=== PATIENT | male | born 1930 | race Caucasian/White ===

== ENCOUNTER 2021-04-16 14:11 | Inpatient (IN) ==
--- NOTE | 2021-04-16 14:31 | Emergency Department Note ---
Impression & Plan Acute respiratory failure with hypoxia, Pleural effusion, left, Acute CHF, Renal insufficiency ED Provider Note NAME: JT RANDHAWA AGE: 89 SEX: M ARRIVES VIA: Ambulance INFORMANT: Patient, ED PROVIDER(S): Duong Edmonds MD CHIEF COMPLAINT: SOB, weakness. PLAN: Disposition: Admit MEDICAL DECISION MAKING: The patient is a pleasant 89-year-old gentleman with past medical history of dementia, CHF who presents to the emergency department from home with worsening shortness of breath where he was found to have oxygen saturation by EMS to 84% on room air. The patient's son at the bedside does acknowledge that the patient has become more edematous over the past several weeks. He reports that his mother, the patient's , is diligent about making sure he takes his medications including his daily Lasix. He reports he is vaccinated for COVID-19 with 2 dose series numerous months ago. Denies any known COVID-19 exposures. On arrival the patient is mildly dyspneic but no acute distress, afebrile with stable vital signs. He appears hypervolemic with 2+ bilateral lower extremity edema. He has mild JVD. He has scattered rales and rhonchi with underlying wheeze. EKG with suspected normal sinus rhythm with prolonged first-degree AV block without overt acute ischemia. Chest x-ray consistent with congestive failure with pulmonary edema and left sided pleural effusion. WBC 11.5, nonspecific. H/H 12.8/39.9 without prior values for comparison. Platelets within normal limits. Chemistry without metabolic acidosis. Creatinine 1.5 without prior values for comparison. Glucose is 330. Electrolytes and LFTs not significant normality. Troponin 0.039, within normal limits. BNP 5400 without prior values for comparison but consistent with the patient's hypervolemic appearance. Lipase is not elevated. TSH within normal limits. COVID-19 PCR was negative. Patient was ordered for IV Lasix. He also was given DuoNeb treatment for complaint of bronchospasm after which he did have some improvement in his dyspnea and work of breathing. Given the patient's hypoxia in the setting of suspected primary component of CHF/hypervolemia the patient's son at the bedside agree with plan for admission. Case was discussed with Alayna Deutsch, with [facility] hospitalist, who evaluate the patient for admission. Triage Nursing notes reviewed and agree them. Prior medical records reviewed Vital Signs: reviewed and remarkable for hypoxia. Differential diagnosis: Reactive airway disease, pneumonia, pneumothorax, COPD, CHF, infections, cardiac ischemia, pulmonary embolism, musculoskeletal, gastrointestinal, as well as other pathologies. ER treatment provided: See below. Diagnostics interpreted by me: ECG: Suspect normal sinus rhythm with first-degree AV block, 78 bpm, no ectopy, LVH, no overt ST elevation or depression, QTC 475, QRS 108. Cardiac Monitoring: An order for continuous cardiac monitoring was placed and demonstrated normal sinus rhythm with first-degree AV block, 78 bpm, no ectopy. Laboratory studies: See below Imaging studies: See below Consultation(s): Alayna Deutsch, with Dr. Zavala [facility] hospitalist, HPI: The patient is a pleasant 89-year-old gentleman with past medical history of dementia, CHF who presents emerged from from home with worsening shortness of breath where he was found to have oxygen saturation by EMS to 84% on room air. Patient sent the bedside does acknowledge that the patient has become more edematous over the past several weeks. He reports that his mother, the patient's , is diligent about making sure he takes his medications including his daily Lasix. He reports he is vaccinated for COVID-19 with 2 dose series numerous months ago. Denies any known COVID-19 exposures. ROS: See above HPI for pertinent positives & negatives. A total of 10 systems reviewed and were otherwise negative. PAST MEDICAL HISTORY:See Below PAST SURGICAL HISTORY:See Below FAMILY HISTORY:See Below SOCIAL HISTORY:See Below HOME MEDICATIONS:See Below ALLERGIES:See Below VITALS:See Below PHYSICAL EXAMINATION: GENERAL: Awake, alert, moderately dyspneic appearing, in no distress HENT: Normocephalic, atraumatic. Oropharynx unremarkable. EYES: Normal conjunctiva. Sclera non-icteric. NECK: Supple. No nuchal rigidity. FROM. Mild JVD. RESPIRATORY: He has scattered rales and rhonchi with underlying wheeze. CARDIAC: Regular rate, normal rhythm. Extremities warm and well perfused. Pulses equal. ABDOMEN: Soft, non-distended. No tenderness to palpation. No rebound or guarding. No masses. RECTAL: Deferred. MUSCULOSKELETAL: Chest examination reveals no tenderness. The back is symmetrical on inspection without obvious abnormality. There is no CVA tenderness to palpation. No joint edema. LOWER EXTREMITIES: Calves are equal size bilaterally and non-tender. 2+ bilateral lower extremity edema. No discoloration. NEURO: Pleasantly confused. No focal sensory or motor deficits noted. SKIN: No rash or jaundice noted. Duong Edmonds MD Past Med/Surg History Medical History CAD (coronary artery disease) HTN (hypertension) Paroxysmal atrial fibrillation Surgical History History of neck surgery S/P aortic valve replacement with bioprosthetic valve S/P CABG (coronary artery bypass graft) Family History Other Family history unobtainable Social History Smoking Status: Never smoker Hx Alcohol Use: No Hx Substance Use: No Preferred Language: Ethiopian Communication Ability: Impaired Emergency Services Dispatcher Required: No Beliefs That Will Affect Care: None Current Living Situation: Spouse and Family Other Information That Helps Us Care for You: No Feels Safe at Home: Yes Safety Concerns: Feels Safe At This Time Assistive Devices: Denture - Upper and Glasses Allergies Allergies Allergy/AdvReac Type Severity Reaction Status Date / Time morphine Allergy Unknown Unverified 04/16/21 15:28 Home Meds Home Medications Medication Instructions Recorded Confirmed aspirin 325 mg tablet 325 mg PO HS 04/16/21 04/16/21 atorvastatin 40 mg tablet (Lipitor) 40 mg PO HS 04/16/21 04/16/21 diltiazem HCl 180 mg 180 mg PO QAM 04/16/21 04/16/21 capsule,extended release 24 hr (Cardizem CD) donepezil 10 mg tablet (Aricept) 10 mg PO HS 04/16/21 04/16/21 furosemide 40 mg tablet (Lasix) See Rx Instructions .ROUTE .COMPLEX 04/16/21 04/16/21 lisinopril 20 mg tablet (Prinivil) 20 mg PO BID 04/16/21 04/16/21 Results & Data (ED) Vital Signs Vital Signs - 24 hr 04/16/21 14:10 04/16/21 14:12 04/16/21 15:00 Temperature 36.7 C Temperature Source Oral Pulse Rate 72 67 Pulse Rate [Apical] Pulse Rate from SpO2 Sensor 65 Pulse Rhythm Regular Pulse Strength Normal Respiratory Rate 20 24 Respiratory Effort / Characteristics Short of Breath Respiratory Depth Normal Respiratory Pattern Regular Blood Pressure 139/103 H 109/71 Blood Pressure Mean 115 83 Blood Pressure Position Lying Pulse Oximetry 89 L 89 L 97 Oxygen Delivery Method Room Air Nasal Cannula Oxygen Flow Rate 2 Sepsis Recent Fever Within 48 Hours No Sepsis New/Unexplained Change in Mental Status No Sepsis Action Taken by Nursing No Action Required Pulse Oximetry Post Tiitration 97 04/16/21 15:17 04/16/21 15:30 04/16/21 16:00 Temperature Temperature Source Pulse Rate 65 67 Pulse Rate [Apical] 65 Pulse Rate from SpO2 Sensor 65 67 Pulse Rhythm Pulse Strength Respiratory Rate 23 21 23 Respiratory Effort / Characteristics Spontaneous Respiratory Depth Respiratory Pattern Blood Pressure Blood Pressure Mean Blood Pressure Position Pulse Oximetry 97 98 96 Oxygen Delivery Method Nasal Cannula Oxygen Flow Rate 2 Sepsis Recent Fever Within 48 Hours Sepsis New/Unexplained Change in Mental Status Sepsis Action Taken by Nursing Pulse Oximetry Post Tiitration 04/16/21 16:30 04/16/21 17:00 Temperature Temperature Source Pulse Rate 69 67 Pulse Rate [Apical] Pulse Rate from SpO2 Sensor Pulse Rhythm Pulse Strength Respiratory Rate 25 H 35 H Respiratory Effort / Characteristics Respiratory Depth Respiratory Pattern Blood Pressure Blood Pressure Mean Blood Pressure Position Pulse Oximetry Oxygen Delivery Method Oxygen Flow Rate Sepsis Recent Fever Within 48 Hours Sepsis New/Unexplained Change in Mental Status Sepsis Action Taken by Nursing Pulse Oximetry Post Tiitration Laboratory Data Attestation: I reviewed the patient's lab results. Result diagrams: 04/16/21 14:45 04/16/21 14:45 Lab Results 04/16/21 04/16/21 04/16/21 Range/Units 14:20 14:20 14:45 WBC 11.50 H (4.8-10.8) K/uL RBC 4.01 L (4.7-6.1) M/uL Hgb 12.8 L (14.0-18.0) g/dL Hct 39.9 L (42-52) % MCV 99.5 (80-100) fL MCH 31.9 (25-34) pg MCHC 32.1 (32-36) g/dL RDW Std Deviation 52.0 H (36.4-46.3) fL RDW Coeff of Argenis 14.2 (11.5-14.5) % Plt Count 180 (130-400) K/uL MPV 10.7 H (7.4-10.4) fL Immature Gran % (Auto) 0.2 % Neut % (Auto) 85.7 % Lymph % (Auto) 7.7 % [place] % (Auto) 5.0 % Eos % (Auto) 1.2 % Baso % (Auto) 0.2 % Neut # (Auto) 9.86 H (1.4-6.5) K/uL Lymph # (Auto) 0.89 L (1.2-3.4) K/uL [place] # (Auto) 0.57 (0.11-0.59) K/uL Eos # (Auto) 0.14 (0-0.5) K/uL Baso # (Auto) 0.02 (0-0.2) K/uL Immature Gran # (Auto) 0.02 (0.00-0.02) K/uL PT (9.0-12.0) Seconds INR (0.9-1.1) Sodium (136-145) mmol/L Potassium (3.5-5.1) mmol/L Chloride (98-107) mmol/L Carbon Dioxide (21-32) mmol/L Anion Gap (3-11) BUN (7-18) mg/dl Creatinine (0.6-1.4) mg/dl Est Cr Clr Drug Dosing ml/min Est GFR ( Amer) ml/min Est GFR (Non-Af Amer) ml/min BUN/Creatinine Ratio (10-20) Glucose (70-99) mg/dl Calcium (8.5-10.1) mg/dl Phosphorus (2.5-4.9) mg/dl Magnesium (1.8-2.4) mg/dl Total Bilirubin (0.2-1) mg/dl AST (15-37) U/L ALT (12-78) U/L Alkaline Phosphatase (45-117) U/L Troponin I (0-0.045) ng/ml NT-Pro-B Natriuret Pep (0-1800) pg/ml Total Protein (6.4-8.2) gm/dl Albumin (3.4-5.0) gm/dl Globulin (2.5-4.0) gm/dl Albumin/Globulin Ratio (0.9-2) Lipase (73-393) U/L Beta-Hydroxybutyric Acd (0.2-2.81) mg/dl TSH (0.300-4.500) uIu/ml COVID-19 Eval Order Covid19 at [facility] SARS-CoV-2 (PCR) NEGATIVE (Negative) 04/16/21 04/16/21 Range/Units 14:45 14:45 WBC (4.8-10.8) K/uL RBC (4.7-6.1) M/uL Hgb (14.0-18.0) g/dL Hct (42-52) % MCV (80-100) fL MCH (25-34) pg MCHC (32-36) g/dL RDW Std Deviation (36.4-46.3) fL RDW Coeff of Argenis (11.5-14.5) % Plt Count (130-400) K/uL MPV (7.4-10.4) fL Immature Gran % (Auto) % Neut % (Auto) % Lymph % (Auto) % [place] % (Auto) % Eos % (Auto) % Baso % (Auto) % Neut # (Auto) (1.4-6.5) K/uL Lymph # (Auto) (1.2-3.4) K/uL [place] # (Auto) (0.11-0.59) K/uL Eos # (Auto) (0-0.5) K/uL Baso # (Auto) (0-0.2) K/uL Immature Gran # (Auto) (0.00-0.02) K/uL PT 10.8 (9.0-12.0) Seconds INR 1.1 (0.9-1.1) Sodium 137 (136-145) mmol/L Potassium 4.1 (3.5-5.1) mmol/L Chloride 105 (98-107) mmol/L Carbon Dioxide 25 (21-32) mmol/L Anion Gap 8.0 (3-11) BUN 26 H (7-18) mg/dl Creatinine 1.51 H (0.6-1.4) mg/dl Est Cr Clr Drug Dosing 35.6 ml/min Est GFR ( Amer) 46.8 ml/min Est GFR (Non-Af Amer) 40.4 ml/min BUN/Creatinine Ratio 17.2 (10-20) Glucose 330 H* (70-99) mg/dl Calcium 9.6 (8.5-10.1) mg/dl Phosphorus 3.2 (2.5-4.9) mg/dl Magnesium 2.4 (1.8-2.4) mg/dl Total Bilirubin 0.6 (0.2-1) mg/dl AST 21 (15-37) U/L ALT 30 (12-78) U/L Alkaline Phosphatase 116 (45-117) U/L Troponin I 0.039 (0-0.045) ng/ml NT-Pro-B Natriuret Pep 5414 H (0-1800) pg/ml Total Protein 8.0 (6.4-8.2) gm/dl Albumin 3.5 (3.4-5.0) gm/dl Globulin 4.5 H (2.5-4.0) gm/dl Albumin/Globulin Ratio 0.8 L (0.9-2) Lipase 214 (73-393) U/L Beta-Hydroxybutyric Acd 1.05 (0.2-2.81) mg/dl TSH 2.660 (0.300-4.500) uIu/ml COVID-19 Eval Order SARS-CoV-2 (PCR) (Negative) Administered Medications Aspirin (Aspirin 325 Mg Ectab) 325 mg PO HS GUMARO Stop: 05/16/21 20:59 Last Admin: 04/16/21 22:16 Dose: 325 mg Documented by: [id number] Atorvastatin Calcium (Atorvastatin 40 Mg Tab) 40 mg PO HS GUMARO Stop: 05/16/21 20:59 Last Admin: 04/16/21 22:16 Dose: 40 mg Documented by: [id number] Donepezil HCl (Donepezil Hcl 10 Mg Tab) 10 mg PO HS GUMARO Stop: 05/16/21 20:59 Last Admin: 04/16/21 22:16 Dose: 10 mg Documented by: [id number] Heparin Sodium (Porcine) (Heparin Sod 5,000 Unit/0.5 Ml Vial) 5,000 units SQ Q8 GUMARO Stop: 05/16/21 21:59 Last Admin: 04/16/21 22:16 Dose: 5,000 units Documented by: [id number] Insulin Aspart (Insulin Aspart 100 Units/Ml 3 Ml Pen) 0 units SC ACHS [facility] Stop: 05/16/21 20:59 Last Admin: 04/16/21 22:11 Dose: 6 units Documented by: [id number] Cosigned by: [id number] Insulin Aspart (Insulin Aspart 100 Units/Ml 3 Ml Pen) 0 units SC 0000,0400 GUMARO Stop: 04/17/21 04:01 Last Admin: 04/17/21 00:41 Dose: 2 units Documented by: [id number] Cosigned by: [id number] Discontinued Medications Albuterol (Albut/Ipratrop 3mg/0.5mg Neb 3 Ml Vial) 3 ml NEB NOW STA Stop: 04/16/21 14:38 Last Admin: 04/16/21 15:17 Dose: 3 ml Documented by: [id number] Furosemide (Furosemide 40 Mg/4 Ml Vial) 40 mg IV ONE ONE Stop: 04/16/21 15:36 Last Admin: 04/16/21 16:20 Dose: 40 mg Documented by: [id number] Imaging Data Radiologist's Impression: Chest X-Ray 04/16/21 14:23 XR chest 1V portable CLINICAL HISTORY: Chest Pain. COMPARISON STUDY: No previous studies for comparison. TECHNIQUE: 1 view of the chest FINDINGS: Single frontal view of the chest demonstrates the heart size to be enlarged status post previous cardiothoracic surgery. There is evidence for a moderate- sized left pleural effusion with left lower lobe atelectasis/collapse. No definite right-sided pleural effusion is seen. There is diffuse interstitial edema most characteristic of congestive heart failure. There is no acute osseous pathology. IMPRESSION: Cardiomegaly status post previous cardiothoracic surgery with evidence for diffuse interstitial edema characteristic of congestive heart failure. Moderate-sized left pleural effusion with left basilar atelectasis is also present. ACT 112: Negative or not required by law. Electronically signed by: Michael Upton M.D. 04/16/2021 2:47 PM Discharge Plan Visit Data Chief Complaint: Shortness of Breath/Dyspnea Stated Complaint: SOB, increased weakness ED Provider: Duong Edmonds Discharge Problem: Acute respiratory failure with hypoxia, Pleural effusion, left, Acute CHF, Renal insufficiency Patient Disposition: Admitted As Inpatient Discharge Instructions Interventions: ED Discharge Assessment Last Done: 04/16/21 18:09
[2021-04-16] MEDS ORDERED: ALBUT/IPRATROP 3MG/0.5MG NEB 3 ML VIAL NEB STA (14:37)
--- NOTE | 2021-04-16 14:48 | XRay Report ---
XR chest 1V portable CLINICAL HISTORY: Chest Pain. COMPARISON STUDY: No previous studies for comparison. TECHNIQUE: 1 view of the chest FINDINGS: Single frontal view of the chest demonstrates the heart size to be enlarged status post previous card iothoracic surgery. There is evidence for a moderate-sized left pleural effusion with left lower lobe atelectasis/collapse. No definite right-sided pleural effusion is seen. There is diffuse interstitia l edema most characteristic of congestive heart failure. There is no acute osseous pathology. IMPRESSION: Cardiomegaly status post previous cardiothoracic surgery with evidence for diffuse inters titial edema characteristic of congestive heart failure. Moderate-sized left pleural effusion with le ft basilar atelectasis is also present. ACT 112: Negative or not required by law. Electronically signed by: Michael Upton M.D. 04/16/2021 2:47 PM
[2021-04-16 14:56] LABS: Basophils # (auto) 0.02 K/uL (0-0.2); Basophils % (auto) 0.2 %; Eosinophils # (auto) 0.14 K/uL (0-0.5); Eosinophils % (auto) 1.2 %; Hematocrit (blood only) 39.9 % (42-52); Hemoglobin 12.8 g/dL (14.0-18.0); Immature Granulocytes # (auto) 0.02 K/uL (0.00-0.02); Immature Granulocytes % (auto) 0.2 %; Lymphocytes # (auto) 0.89 K/uL (1.2-3.4); Lymphocytes % (auto) 7.7 %; Mean Corpuscular Hemoglobin 31.9 pg (25-34); Mean Corpuscular Hgb Conc 32.1 g/dL (32-36); Mean Corpuscular Volume 99.5 fL (80-100); Mean Platelet Volume 10.7 fL (7.4-10.4); Monocytes # (auto) 0.57 K/uL (0.11-0.59); Neutrophils # (auto) 9.86 K/uL (1.4-6.5); Neutrophils % (auto) 85.7 %; Platelet Count 180 K/uL (130-400); RDW Coefficient of Variation 14.2 % (11.5-14.5); Red Blood Count 4.01 M/uL (4.7-6.1)
[2021-04-16 15:15] LABS: INR 1.1 (0.9-1.1); Prothrombin Time 10.8 Seconds (9.0-12.0)
[2021-04-16 15:23] LABS: Albumin Globulin Ratio 0.8 (0.9-2); Albumin Level 3.5 gm/dl (3.4-5.0); BUN Creatinine Ratio 17.2 (10-20); Bilirubin,Total 0.6 mg/dl (0.2-1); Calcium 9.6 mg/dl (8.5-10.1); Creatinine Clr Calc Pharmacy 35.6 ml/min; Est GFR (African American) 46.8 ml/min; Est GFR (Non-African American) 40.4 ml/min; Globulin 4.5 gm/dl (2.5-4.0); Magnesium 2.4 mg/dl (1.8-2.4); Phosphorus 3.2 mg/dl (2.5-4.9); Potassium 4.1 mmol/L (3.5-5.1)
[2021-04-16] MEDS ORDERED: FUROSEMIDE 40 MG/4 ML VIAL IV ONE (15:35)
[2021-04-16 15:42] LABS: Beta-Hydroxybutyrate 1.05 mg/dl (0.2-2.81); Thyroid Stimulating Hormone 2.66 uIu/ml (0.300-4.500); Troponin I 0.039 ng/ml (0-0.045)
--- NOTE | 2021-04-16 16:41 | Electrocardiogram Report ---
Test Reason : Blood Pressure : / mmHG Vent. Rate : 070 BPM Atrial Rate : 069 BPM P-R Int : 000 ms QRS Dur : 108 ms QT Int : 440 ms P-R-T Axes : 000 -22 057 degrees QTc Int : 475 ms Poor data quality, interpretation may be adversely affected Probably sinus, although a junctiontional rhythm cannot be excluded Minimal voltage criteria for LVH, may be normal variant Abnormal ECG No previous ECGs available Confirmed by Dino Rojas ([id number]) on 04/16/2021 4:41:11 PM Referred By: REFERRED SELF Confirmed By:Uri Rojas
--- NOTE | 2021-04-16 17:49 | History & Physical Report ---
Date of Service April 16, 2021 Assessment & Plan (1) Acute CHF: (2) Acute respiratory failure with hypoxia: Plan: -Admit to telemetry -Patient presenting from home for evaluation of lethargy and hypoxia. -In the ED, CXR shows signs consistent with CHF and left pleural effusion. Patient requiring 2 L of oxygen via nasal cannula. -Noted the patient does take Lasix at home however outpatient record availability very limited, no recent echo available for review -S/p Lasix 40 mg IV in the ED, continue Lasix 40 mg IV daily -Grey placed for strict I/Os, low Na+ diet, daily weights -Echo -Consider cardiology consult pending echo results (3) Pleural effusion, left: Plan: -CXR shows a moderate pleural effusion -Likely due to acute CHF -Monitor response after Lasix may need pulmonary evaluation for possible thoracentesis (4) Hyperglycemia: Plan: -Glucose 330 -No reported history of diabetes -Check Hgb A1c -Glycemic pharmacy consult (5) Abnormal renal function: Plan: -Creatinine 1.5, unknown baseline -Suspect likely underlying CKD -Monitor renal functions (6) Paroxysmal atrial fibrillation: Plan: -Remote history of found in a limited record review -Continue diltiazem -Likely not anticoagulated secondary to advanced age and fall risk (7) HTN (hypertension): Plan: -BP currently controlled/borderline low -Continuing diltiazem, hold lisinopril due to mildly abnormal renal function and receiving IV diuresis (8) CAD (coronary artery disease): Plan: -Appears stable -Remote history of CABG -Continue ASA and statin (9) DVT prophylaxis: Plan: -SQ heparin (10) Discharge planning issues: Plan: -Patient with advanced dementia. Lives at home with his 91-year-old . Son is at the bedside who reports that his mom is very resistant to having care come into the home. Discussed CODE STATUS with patient's son who is unsure of the details of the patient's and 's wishes. Reports that he will have a discussion with his siblings and mother this evening. Consider palliative care consult for goals of care conversation. History of Present Illness Chief Complaint: Lethargy Primary Care Provider: Peter Tejeda PA-C 89-year-old male with PMH dementia, CAD s/p CABG, aortic stenosis s/p bioprosthetic aortic valve replacement, paroxysmal atrial fibrillation, HTN. Past medical history very limited due to limited record availability and pa maximilian's dementia. Patient son is at the bedside who provides history. Reports that this afternoon, his father was very lethargic. They have a neighbor who is a physician's itinerant teacher assistant who came to evaluate him. Patient was found to be hypoxic and have abnormal lung sounds. EMS was called and patient was brought to the ED for further evaluation. Patient son notes increasing lower extremity edema over the past few weeks. Attributes this to the patient not elevating his legs. No other symptoms reported. Note that patient lives at home with his 91-year-old . Son reports that his mother is very resistant to having help come into the house. In the ED, patient is requiring 2 L of oxygen via nasal cannula. CXR is consistent with CHF and a left pleural effusion. Labs show WBC 11.5, Hgb 12.8, creatinine 1.5, glucose 330, proBNP 5400. Patient was given nebulizer treatment and Lasix 40 mg IV. Allergies Allergy/AdvReac Type Severity Reaction Status Date / Time morphine Allergy Unknown Unverified 04/16/21 15:28 Home Medications Medication Instructions Recorded Confirmed Type aspirin 325 mg tablet 325 mg PO HS 04/16/21 04/16/21 History atorvastatin 40 mg tablet (Lipitor) 40 mg PO HS 04/16/21 04/16/21 History diltiazem HCl 180 mg 180 mg PO QAM 04/16/21 04/16/21 History capsule,extended release 24 hr (Cardizem CD) donepezil 10 mg tablet (Aricept) 10 mg PO HS 04/16/21 04/16/21 History furosemide 40 mg tablet (Lasix) See Rx Instructions .ROUTE .COMPLEX 04/16/21 04/16/21 History lisinopril 20 mg tablet (Prinivil) 20 mg PO BID 04/16/21 04/16/21 History Past Med/Surg History Medical History CAD (coronary artery disease) HTN (hypertension) Paroxysmal atrial fibrillation Surgical History History of neck surgery S/P aortic valve replacement with bioprosthetic valve S/P CABG (coronary artery bypass graft) Family History Other Family history unobtainable Social History (Updated 04/16/21 @ 17:34 by SURENDRA Sinha) Smoking Status: Never smoker Hx Alcohol Use: No Feels Safe at Home: Yes Review of Systems Review of Systems: Unobtainable due to cognitive status Physical Exam Constitutional: WD/WN, vitals as above Eyes: PERRL, conjunctivae normal, anicteric sclerae ENMT: external ear and nose normal, oropharynx normal Respiratory: normal respiratory effort; no respiratory distress Auscultation: + crackles (BL bases) Cardiovascular: Rate/Rhythm: regular rate and regular rhythm Vessels: normal peripheral pulses Extremities: + edema (+3 pitting edema BLE) Gastrointestinal (Abdomen): normal bowel sounds, soft, nontender, no hepatosplenomegaly Inspection/Auscultation: + abdomen distended Musculoskeletal: no cyanosis or clubbing, extremities motor strength 5/5 Skin: no rashes, warm and dry Neurologic: PERRL, EOMI, accommodation nl, no face palsy, no dysarthria Psychiatric: Orientation: alert and oriented to person; + not oriented to place and + not oriented to time Cognition: + recent memory not intact Insight: + poor insight Results & Data Results & Data ([facility]) Vital Signs (Past 12 Hours) Vital Signs Temp Pulse Pulse Resp BP Pulse Ox 04/16/21 15:30 65 21 98 04/16/21 15:17 65 23 97 04/16/21 15:00 67 24 109/71 97 04/16/21 14:12 89 L 04/16/21 14:10 36.7 C 72 20 139/103 H 89 L Laboratory Results Short CBC 04/16/21 Range/Units 14:45 WBC 11.50 H (4.8-10.8) K/uL Hgb 12.8 L (14.0-18.0) g/dL Hct 39.9 L (42-52) % Plt Count 180 (130-400) K/uL BMP 04/16/21 14:45 Sodium 137 Potassium 4.1 Chloride 105 Carbon Dioxide 25 BUN 26 H Creatinine 1.51 H Glucose 330 H* Calcium 9.6 Cardiac Enzymes 04/16/21 Range/Units 14:45 Troponin I 0.039 (0-0.045) ng/ml Liver Function 04/16/21 Range/Units 14:45 Total Bilirubin 0.6 (0.2-1) mg/dl AST 21 (15-37) U/L ALT 30 (12-78) U/L Alkaline Phosphatase 116 (45-117) U/L Albumin 3.5 (3.4-5.0) gm/dl Diagnostic Findings Chest X-Ray 04/16/21 14:23 XR chest 1V portable CLINICAL HISTORY: Chest Pain. COMPARISON STUDY: No previous studies for comparison. TECHNIQUE: 1 view of the chest FINDINGS: Single frontal view of the chest demonstrates the heart size to be enlarged status post previous cardiothoracic surgery. There is evidence for a moderate- sized left pleural effusion with left lower lobe atelectasis/collapse. No definite right-sided pleural effusion is seen. There is diffuse interstitial edema most characteristic of congestive heart failure. There is no acute osseous pathology. IMPRESSION: Cardiomegaly status post previous cardiothoracic surgery with evidence for diffuse interstitial edema characteristic of congestive heart failure. Moderate-sized left pleural effusion with left basilar atelectasis is also present. ACT 112: Negative or not required by law. Electronically signed by: Michael Upton M.D. 04/16/2021 2:47 PM Code Status & VTE Plan Code Status Patient is a full code as per my discussion with his son who is at the bedside. VTE Prophylaxis Plan VTE Prophylaxis will be ordered: Yes Supervising Physician Co-Signing Physician Notes Attending addendum The patient was seen and examined in the emergency room in presence of the son He is severely demented and cannot do any meaningful conversation Presented with shortness of breath, not feeling well and leg swelling which has been going on for the last 3 or 4 days On examination Minimal shortness of breath at rest Hemodynamically stable Chest-decreased breath sound bilaterally with bibasilar crackles Heart-S1-S2, regular Abdomen-distended, soft, bowel sound present [id number]+ edema bilaterally PULMONOLOGIST-alert and awake. Has profound dementia His admission labs, EKG and imaging studies reviewed Has CHF with pleural effusion Lasix has been given and will get echocardiogram May need cardiology evaluation Agree with assessment and plan as outlined above by Aleyda Zavala
[2021-04-16] MEDS ORDERED: PHARMACY GLYCEMIC MGMT CONSULT PRN (19:19)
[2021-04-16] MEDS ORDERED: CARBOHYDRATES FOR HYPOGLYCEMIA PO PRN (19:19)
[2021-04-16] MEDS ORDERED: GLUCAGON FOR INJ 1 MG VIAL SQ PRN (19:19)
[2021-04-16] MEDS ORDERED: NITROGLYCERIN SL 0.4 MG/TAB TAB SL PRN (19:19)
[2021-04-16] MEDS ORDERED: DEXTROSE 50% 50 ML SYRINGE IV PRN (19:19)
[2021-04-16] MEDS ORDERED: GLUCOSE 10 TABS/TUBE PO PRN (19:19)
[2021-04-16] MEDS ORDERED: GLUCOSE 40% GEL 15 GM TUBE PO PRN (19:19)
[2021-04-16] MEDS ORDERED: ACETAMINOPHEN 325 MG TAB PO PRN (19:19)
[2021-04-16 21:30] LABS: Partial Thromboplastin Time 25.6 Seconds (21.0-31.0)
[2021-04-16] MEDS: INSULIN ASPART 100 UNITS/ML 3 ML PEN SC SCH (22:11)
[2021-04-16] MEDS: DONEPEZIL HCL 10 MG TAB PO SCH (22:16)
[2021-04-16] MEDS: ATORVASTATIN 40 MG TAB PO SCH (22:16)
[2021-04-16] MEDS: HEPARIN SOD 5,000 UNIT/0.5 ML VIAL SQ SCH (22:16)
[2021-04-16] MEDS: ASPIRIN 325 MG ECTAB PO SCH (22:16)
[2021-04-17] MEDS: INSULIN ASPART 100 UNITS/ML 3 ML PEN SC SCH ×6 (00:41→21:17)
[2021-04-17] MEDS: HEPARIN SOD 5,000 UNIT/0.5 ML VIAL SQ SCH ×3 (05:04→21:17)
[2021-04-17 07:25] LABS: Hematocrit (blood only) 32.5 % (42-52); Hemoglobin 10.6 g/dL (14.0-18.0); Mean Corpuscular Hemoglobin 31.5 pg (25-34); Mean Corpuscular Hgb Conc 32.6 g/dL (32-36); Mean Corpuscular Volume 96.7 fL (80-100); Mean Platelet Volume 10.4 fL (7.4-10.4); Platelet Count 157 K/uL (130-400); RDW Coefficient of Variation 14.3 % (11.5-14.5); RDW Standard Deviation 50.9 fL (36.4-46.3); Red Blood Count 3.36 M/uL (4.7-6.1); White Blood Count 12.58 K/uL (4.8-10.8)
[2021-04-17 07:55] LABS: BUN Creatinine Ratio 20.6 (10-20); Calcium 9.1 mg/dl (8.5-10.1); Creatinine Clr Calc Pharmacy 42.4 ml/min; Est GFR (African American) 57.7 ml/min; Est GFR (Non-African American) 49.8 ml/min; Magnesium 2.2 mg/dl (1.8-2.4); Potassium 3.9 mmol/L (3.5-5.1)
[2021-04-17] MEDS: dilTIAZem HCL 180 MG CAPCR PO SCH (08:15)
[2021-04-17] MEDS: FUROSEMIDE 40 MG/4 ML VIAL IV SCH (08:16)
[2021-04-17 09:23] LABS: Estimated Average Glucose 209 mg/dl; Hemoglobin A1C 8.9 % (4.5-5.6)
--- NOTE | 2021-04-17 11:32 | Pharmacy Report ---
Pharmacy Glycemic Short Note 2 - Date of Service April 17, 2021 - Glycemic Short BSG Results (Last 24 hours): 04/16/21 04/16/21 04/17/21 14:45 20:14 00:39 Glucose 330 H* POC Glucose 281 H 170 H 04/17/21 04/17/21 04/17/21 05:00 06:58 07:44 Glucose 159 H POC Glucose 176 H 155 H OUTPATIENT ANTIDIABETIC REGIMEN: * n/a * A1c 8.9% - 04/17/21 ASSESSMENT: * 89 year old male with PMHx of dementia, CAD, s/p value replacement, afib, htn, Presenting with increase edema/CHF. No reported history of diabetes, but with elevated BSGs on arrival * BSGs trending downward since starting sliding scale insulin. Plan to continue same for now PLAN FOR INPATIENT GLYCEMIC CONTROL: * Hold outpatient oral diabetes medications * Basal insulin * Lantus - holding due to advanced age * Bolus insulin * NovoLog per scale ACHS or Q6hrs while NPO * Goal Range: Low 110 mg/dL - High 140 mg/dL * Correction Factor: 25 mg/dL/unit * Nutritional / Prandial insulin per carb ratio of 1 unit per 9 grams CHO consumed PLAN FOR DISCHARGE: * tbd
--- NOTE | 2021-04-17 17:48 | Hospitalist Progress Note ---
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 -In the ED, CXR shows signs consistent with CHF and left pleural effusion. Patient requiring 2 L of oxygen via nasal cannula. -Noted the patient does take Lasix at home however outpatient record availability very limited, no recent echo available for review -S/p Lasix 40 mg IV in the ED, continue Lasix 40 mg IV daily -Grey placed for strict I/Os, low Na+ diet, daily weights -ECHO: Severe concentric LVH, septal inferoseptal wall motion abnormality, EF 45 to 50%, grade 3 diastolic dysfunction, increased left atrial pressure and left atrium is severely dilated, bioprosthetic aortic valve, aortic valve prosthesis gradients are appropriate, no prosthetic regurgitation, mild MR and mild TR, pulmonary artery systolic pressure is mildly elevated at 43. -EKG showed possible sinus/junctional bradycardia -Troponins are mildly elevated likely secondary to CHF -Patient has been feeling much better -We will continue intravenous Lasix for now -Repeat EKG tomorrow (2) Acute respiratory failure with hypoxia: Plan: Likely secondary to CHF (3) Pleural effusion, left: Plan: -CXR shows a moderate pleural effusion -Likely due to acute CHF -Monitor response after Lasix may need pulmonary evaluation for possible thoracentesis (4) Hyperglycemia: Plan: -Glucose 330 -No reported history of diabetes -Check Hgb B6v-[id number] at 8.9 -Has been on sliding scale insulin coverage -Glycemic pharmacy consult (5) Abnormal renal function: Plan: -Creatinine 1.5, unknown baseline -Suspect likely underlying CKD -Monitor renal functions-creatinine is 1.27 as of 04/17/2021 (6) Paroxysmal atrial fibrillation: Plan: -Remote history of found in a limited record review -Continue diltiazem -Likely not anticoagulated secondary to advanced age and fall risk (7) HTN (hypertension): Plan: -BP currently controlled/borderline low -Continuing diltiazem, hold lisinopril due to mildly abnormal renal function and receiving IV diuresis -Blood pressure is controlled (8) CAD (coronary artery disease): Plan: -Appears stable -Remote history of CABG -Continue ASA and statin (9) DVT prophylaxis: Plan: -SQ heparin (10) Discharge planning issues: Plan: -Patient with advanced dementia. Lives at home with his 91-year-old . Son is at the bedside who reports that his mom is very resistant to having care come into the home. CODE STATUS changed to conditional after discussion with the son Admission and Anticipated Discharge Date Admission Date: April 16, 2021 Subjective 04/17/2021 The patient was seen and examined in telemetry unit in presence of the son He has been much better He has severe dementia but answered questions appropriately today Review of Systems Review of Systems: Unobtainable due to cognitive status Physical Exam Physical Exam: Lying in bed with minimal distress Constitutional: well developed, well nourished and + ill appearing Eyes: PERRL, conjunctivae normal, anicteric sclerae ENMT: external ear and nose normal, oropharynx normal Neck: trachea midline, no thyromegaly Respiratory: + respiratory distress (Minimal distress at rest) and + cough Auscultation: + diminished lung sounds and + crackles (Bibasilar crackles) Cardiovascular: Rate/Rhythm: regular rate and regular rhythm Heart Sounds: normal S1 and normal S2; no murmur Extremities: + edema (1+ edema bilaterally) Gastrointestinal (Abdomen): Inspection/Auscultation: normal bowel sounds; abdomen not distended Percussion/Palpation: abdomen soft; abdomen nontender Musculoskeletal: No acute arthritis in any joint Neurologic: Alert and awake. Pleasantly confused. Moving all limbs but generally very weak and lethargic Psychiatric: Insight: + poor insight Lymphatic: no cervical or axillary lymphadenopathy Results & Data Results & Data ([facility]) Vital Signs (Past 12 Hours) Vital Signs Temp Pulse Resp BP Pulse Ox 04/17/21 16:13 36.6 C 62 18 124/75 99 04/17/21 12:06 36.5 C 70 18 99/62 L 93 04/17/21 07:54 36.6 C 84 18 130/82 96 Laboratory Results Short CBC 04/17/21 Range/Units 06:58 WBC 12.58 H (4.8-10.8) K/uL Hgb 10.6 L (14.0-18.0) g/dL Hct 32.5 L (42-52) % Plt Count 157 (130-400) K/uL BMP 04/17/21 06:58 Sodium 141 Potassium 3.9 Chloride 108 H Carbon Dioxide 28 BUN 26 H Creatinine 1.27 Glucose 159 H Calcium 9.1 Cardiac Enzymes 04/16/21 04/17/21 Range/Units 20:30 02:20 Troponin I 0.063 H* 0.073 H* (0-0.045) ng/ml Medications Administered Current Inpatient Medications Acetaminophen (Acetaminophen 325 Mg Tab) 650 mg PO Q4H PRN PRN Reason: Pain or Fever Stop: 05/16/21 19:18 Aspirin (Aspirin 325 Mg Ectab) 325 mg PO HS GUMARO Stop: 05/16/21 20:59 Last Admin: 04/16/21 22:16 Dose: 325 mg Documented by: Atorvastatin Calcium (Atorvastatin 40 Mg Tab) 40 mg PO HS GUMARO Stop: 05/16/21 20:59 Last Admin: 04/16/21 22:16 Dose: 40 mg Documented by: Dextrose (Dextrose 50% 50 Ml Syringe) 25 - 50 ml IV UD PRN; Protocol PRN Reason: Hypoglycemia Protocol Stop: 05/16/21 19:18 Diltiazem HCl (Diltiazem Hcl 180 Mg Capcr) 180 mg PO QAM GUMARO Stop: 05/17/21 08:59 Last Admin: 04/17/21 08:15 Dose: 180 mg Documented by: Donepezil HCl (Donepezil Hcl 10 Mg Tab) 10 mg PO HS GUMARO Stop: 05/16/21 20:59 Last Admin: 04/16/21 22:16 Dose: 10 mg Documented by: Furosemide (Furosemide 40 Mg/4 Ml Vial) 40 mg IV DAILY GUMARO Stop: 05/17/21 08:59 Last Admin: 04/17/21 08:16 Dose: 40 mg Documented by: Glucagon (Glucagon For Inj 1 Mg Vial) 1 mg SQ UD PRN; Protocol PRN Reason: Hypoglycemia Protocol Stop: 05/16/21 19:18 Glucose (Glucose 10 Tabs/Tube) 4 - 8 tabs PO UD PRN; Protocol PRN Reason: Hypoglycemia Protocol Stop: 05/16/21 19:18 Glucose (Glucose 40% Gel 15 Gm Tube) 15 - 30 gm PO UD PRN; Protocol PRN Reason: Hypoglycemia Protocol Stop: 05/16/21 19:18 Heparin Sodium (Porcine) (Heparin Sod 5,000 Unit/0.5 Ml Vial) 5,000 units SQ Q8 GUMARO Stop: 05/16/21 21:59 Last Admin: 04/17/21 14:27 Dose: 5,000 units Documented by: Insulin Aspart (Insulin Aspart 100 Units/Ml 3 Ml Pen) 0 units SC ACHS GUMARO Stop: 05/16/21 20:59 Last Admin: 04/17/21 17:05 Dose: 3 units Documented by: Miscellaneous (Carbohydrates For Hypoglycemia ) 15 - 30 gm PO UD PRN PRN Reason: Hypoglycemia Protocol Stop: 05/16/21 19:18 Miscellaneous Information (Pharmacy Glycemic Mgmt Consult) 1 ea N/A UD PRN; Protocol PRN Reason: Consult Stop: 05/16/21 19:18 Nitroglycerin (Nitroglycerin Sl 0.4 Mg/Tab Tab) 0.4 mg SL UD PRN PRN Reason: Chest Pain Stop: 05/16/21 19:18 (1) Acute CHF Heart failure type: unspecified Qualified Code(s): I50.9 - Heart failure, unspecified
[2021-04-17] MEDS: ASPIRIN 325 MG ECTAB PO SCH (21:17)
[2021-04-17] MEDS: ATORVASTATIN 40 MG TAB PO SCH (21:17)
[2021-04-17] MEDS: DONEPEZIL HCL 10 MG TAB PO SCH (21:17)
[2021-04-18] MEDS: HEPARIN SOD 5,000 UNIT/0.5 ML VIAL SQ SCH ×3 (05:26→21:36)
[2021-04-18] MEDS: dilTIAZem HCL 180 MG CAPCR PO SCH (08:13)
[2021-04-18] MEDS: FUROSEMIDE 40 MG/4 ML VIAL IV SCH (08:13)
[2021-04-18] MEDS: INSULIN ASPART 100 UNITS/ML 3 ML PEN SC SCH ×4 (08:15→21:40)
[2021-04-18 08:35] LABS: BUN Creatinine Ratio 20.4 (10-20); Calcium 8.6 mg/dl (8.5-10.1); Creatinine Clr Calc Pharmacy 41.9 ml/min; Est GFR (African American) 58.2 ml/min; Est GFR (Non-African American) 50.2 ml/min; Magnesium 2.3 mg/dl (1.8-2.4); Potassium 3.9 mmol/L (3.5-5.1)
--- NOTE | 2021-04-18 10:37 | Pharmacy Report ---
Pharmacy Glycemic Sign Off Nt - Date of Service April 18, 2021 - Assessment & Plan ASSESSMENT: * Pharmacy was consulted by Aleyda Alvarez on 04/16/21 for glycemic control and to write orders per [facility] inpatient glycemic control protocol. * Major changes made by pharmacy to antidiabetic regimen include: * Initiating bolus insulin monotherapy (no Lantus per provider) * Patient has been receiving/requiring ~16 units of insulin per day for adequate glycemic control * BSGs ranging 139-236 mg/dl * Regimen has only required minor adjustments over the past 48hrs to achieve this level of control * Do not anticipate further changes in patient status that would quickly deteriorate glycemic control (i.e. patient to be NPO for upcoming procedure, steroids tapering, starting tube feedings, etc). * Please see recommendations for outpatient antidiabetic regimen below. PLAN FOR INPATIENT GLYCEMIC CONTROL: No changes needed to current regimen. * No basal insulin * Continue NovoLog per scale ACHS/Q6hrs while NPO * Goal range = 110-140 mg/dl * CF = 25 mg/dl/unit * CR = 1 unit for ever 9 g CHO consumed * Pharmacy is signing off of glycemic consult and will no longer be making adjustments to inpatient regimen. Please feel free to re-consult if needed. Thank you. DISCHARGE RECOMMENDATIONS: * A1c 8.9 % on 04/17/21 * Goal A1c likely <8.5% * Could consider Januvia (sitagliptin) 50mg PO daily + dietary changes.
--- NOTE | 2021-04-18 10:51 | Electrocardiogram Report ---
Test Reason : Blood Pressure : / mmHG Vent. Rate : 068 BPM Atrial Rate : 068 BPM P-R Int : 000 ms QRS Dur : 096 ms QT Int : 458 ms P-R-T Axes : 000 -31 060 degrees QTc Int : 487 ms Atrial fibrillation with premature ventricular or aberrantly conducted complexes Left axis deviation Nonspecific T wave abnormality Prolonged QT Abnormal ECG When compared with ECG of 16-APR-2021 14:25, Nonspecific T wave abnormality, worse in Lateral leads Confirmed by Dino Rojas ([id number]) on 04/18/2021 10:51:16 AM Referred By: REFERRED SELF Confirmed By:Uri Rojas
[2021-04-18 11:15] LABS: Basophils # (auto) 0.01 K/uL (0-0.2); Basophils % (auto) 0.1 %; Eosinophils # (auto) 0.43 K/uL (0-0.5); Eosinophils % (auto) 5.4 %; Hematocrit (blood only) 32.3 % (42-52); Hemoglobin 10.3 g/dL (14.0-18.0); Immature Granulocytes # (auto) 0.02 K/uL (0.00-0.02); Immature Granulocytes % (auto) 0.3 %; Lymphocytes # (auto) 0.86 K/uL (1.2-3.4); Lymphocytes % (auto) 10.8 %; Mean Corpuscular Hemoglobin 31.7 pg (25-34); Mean Corpuscular Hgb Conc 31.9 g/dL (32-36); Mean Corpuscular Volume 99.4 fL (80-100); Mean Platelet Volume 11.1 fL (7.4-10.4); Monocytes # (auto) 0.91 K/uL (0.11-0.59); Monocytes % (auto) 11.4 %; Neutrophils # (auto) 5.77 K/uL (1.4-6.5); Platelet Count 163 K/uL (130-400); RDW Coefficient of Variation 14.2 % (11.5-14.5); RDW Standard Deviation 51.1 fL (36.4-46.3); Red Blood Count 3.25 M/uL (4.7-6.1)
--- NOTE | 2021-04-18 15:48 | Hospitalist Progress Note ---
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 -In the ED, CXR shows signs consistent with CHF and left pleural effusion. Patient requiring 2 L of oxygen via nasal cannula. -Noted the patient does take Lasix at home however outpatient record availability very limited, no recent echo available for review Continue Lasix 40 mg IV daily -Grey placed for strict I/Os, low Na+ diet, daily weights -ECHO: Severe concentric LVH, septal inferoseptal wall motion abnormality, EF 45 to 50%, grade 3 diastolic dysfunction, increased left atrial pressure and left atrium is severely dilated, bioprosthetic aortic valve, aortic valve prosthesis gradients are appropriate, no prosthetic regurgitation, mild MR and mild TR, pu lmonary artery systolic pressure is mildly elevated at 43. -EKG showed possible sinus/junctional bradycardia -Troponins are mildly elevated likely secondary to CHF Today he is doing okay. Currently on 3 L of nasal cannula. Monitor daily BMP. (2) Acute respiratory failure with hypoxia: Plan: Likely secondary to CHF (3) Pleural effusion, left: Plan: -CXR shows a moderate pleural effusion -Likely due to acute CHF -Monitor response after Lasix may need pulmonary evaluation for possible thoracentesis (4) Hyperglycemia: Plan: Hgb [id number]-[id number] at 8.9 -Has been on sliding scale insulin coverage -Glycemic pharmacy consult Appreciate hospice educator input. Start patient on Januvia and carb diet. (5) Abnormal renal function: Plan: -Creatinine 1.5, unknown baseline -Suspect likely underlying CKD Today at 1.26. (6) Paroxysmal atrial fibrillation: Plan: -Remote history of found in a limited record review -Continue diltiazem -Likely not anticoagulated secondary to advanced age and fall risk (7) HTN (hypertension): Plan: -BP currently controlled/borderline low -Continuing diltiazem, hold lisinopril due to mildly abnormal renal function and receiving IV diuresis -Blood pressure is controlled (8) CAD (coronary artery disease): Plan: -Appears stable -Remote history of CABG -Continue ASA and statin (9) DVT prophylaxis: Plan: -SQ heparin (10) Discharge planning issues: Plan: -Patient with advanced dementia. Lives at home with his 91-year-old . Son is at the bedside who reports that his mom is very resistant to having care come into the home. CODE STATUS changed to conditional after discussion with the son Admission and Anticipated Discharge Date Admission Date: April 16, 2021 Subjective Patient was resting comfortably. Could not obtain full review of system given his baseline mental status. Currently on 3 L of nasal cannula. Does not appear to be in any distress. Review of Systems Review of Systems: All systems reviewed & are unremarkable except as noted in HPI & below Physical Exam Physical Exam: General: Awake and alert HENT: NCAT, MMM, EOMI Eyes: PERRLA Neck: Supple, normal range of motion CVS: normal rate and rhythm Resp: b/l crackles appreciated Abdomen: Soft, nondistended nontender Extremities: No c/c/e Neuro: face symmetric, could not perform as patient did not follow commands Skin: warm and dry MSK: normal ROM Results & Data Results & Data ([facility]) Vital Signs (Past 12 Hours) Vital Signs Temp Pulse Pulse Resp BP Pulse Ox 04/18/21 12:30 36.6 C 64 17 120/72 94 04/18/21 10:47 67 04/18/21 06:59 36.5 C 62 18 129/72 99 (1) Acute CHF Heart failure type: unspecified Qualified Code(s): I50.9 - Heart failure, unspecified
[2021-04-18] MEDS: SITagliptin PHOSPHATE 25 MG TAB PO SCH (17:35)
[2021-04-18] MEDS: DONEPEZIL HCL 10 MG TAB PO SCH (20:20)
[2021-04-18] MEDS: ASPIRIN 325 MG ECTAB PO SCH (20:20)
[2021-04-18] MEDS: ATORVASTATIN 40 MG TAB PO SCH (20:20)
[2021-04-19] MEDS: HEPARIN SOD 5,000 UNIT/0.5 ML VIAL SQ SCH ×3 (06:28→20:57)
[2021-04-19 07:11] LABS: Hematocrit (blood only) 34.3 % (42-52); Mean Corpuscular Hemoglobin 31.3 pg (25-34); Mean Corpuscular Hgb Conc 32.1 g/dL (32-36); Mean Corpuscular Volume 97.4 fL (80-100); Mean Platelet Volume 10.8 fL (7.4-10.4); Platelet Count 174 K/uL (130-400); RDW Coefficient of Variation 14.1 % (11.5-14.5); RDW Standard Deviation 50.2 fL (36.4-46.3); Red Blood Count 3.52 M/uL (4.7-6.1); White Blood Count 8.18 K/uL (4.8-10.8)
[2021-04-19] MEDS: INSULIN ASPART 100 UNITS/ML 3 ML PEN SC SCH ×4 (08:22→20:55)
[2021-04-19] MEDS: FUROSEMIDE 40 MG/4 ML VIAL IV SCH (08:25)
[2021-04-19] MEDS: dilTIAZem HCL 180 MG CAPCR PO SCH (08:26)
[2021-04-19] MEDS: SITagliptin PHOSPHATE 25 MG TAB PO SCH (08:27)
[2021-04-19 09:39] LABS: BUN Creatinine Ratio 21.6 (10-20); Calcium 9.7 mg/dl (8.5-10.1); Creatinine Clr Calc Pharmacy 40.6 ml/min; Est GFR (African American) 56.6 ml/min; Est GFR (Non-African American) 48.8 ml/min; Potassium 4.2 mmol/L (3.5-5.1)
--- NOTE | 2021-04-19 14:06 | Hospitalist Progress Note ---
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 -In the ED, CXR shows signs consistent with CHF and left pleural effusion. Patient requiring 2 L of oxygen via nasal cannula. -Noted the patient does take Lasix at home however outpatient record availability very limited, no recent echo available for review Continue Lasix 40 mg IV daily. -Grey placed for strict I/Os, low Na+ diet, daily weights -ECHO: Severe concentric LVH, septal inferoseptal wall motion abnormality, EF 45 to 50%, grade 3 diastolic dysfunction, increased left atrial pressure and left atrium is severely dilated, bioprosthetic aortic valve, aortic valve prosthesis gradients are appropriate, no prosthetic regurgitation, mild MR and mild TR, p ulmonary artery systolic pressure is mildly elevated at 43. -EKG showed possible sinus/junctional bradycardia -Troponins are mildly elevated likely secondary to CHF Remains on 3 L of nasal cannula. Continue to work with PT/OT. Likely discharge in the next 1 to 2 days. Monitor daily BMP. Aspiration? Nursing staff was concerned about possible aspiration episode. Would obtain chest x-ray. N.p.o. for now. Will consult speech therapy. (2) Acute respiratory failure with hypoxia: Plan: Likely secondary to CHF (3) Pleural effusion, left: Plan: -CXR shows a moderate pleural effusion -Likely due to acute CHF -Monitor response after Lasix may need pulmonary evaluation for possible thoracentesis (4) Hyperglycemia: Plan: Hgb K9c-ahtbdurb at 8.9 -Has been on sliding scale insulin coverage -Glycemic pharmacy consult Appreciate compensation/benefits specialist input. Start patient on Januvia and carb diet. (5) Abnormal renal function: Plan: -Creatinine 1.5, unknown baseline -Suspect likely underlying CKD Today at 1.29 (6) Paroxysmal atrial fibrillation: Plan: -Remote history of found in a limited record review -Continue diltiazem -Likely not anticoagulated secondary to advanced age and fall risk (7) HTN (hypertension): Plan: -BP currently controlled/borderline low -Continuing diltiazem, hold lisinopril due to mildly abnormal renal function and receiving IV diuresis -Blood pressure is controlled (8) CAD (coronary artery disease): Plan: -Appears stable -Remote history of CABG -Continue ASA and statin (9) DVT prophylaxis: Plan: -SQ heparin (10) Discharge planning issues: Plan: -Patient with advanced dementia. Lives at home with his 91-year-old . Son is at the bedside who reports that his mom is very resistant to having care come into the home. CODE STATUS changed to conditional after discussion with the son Admission and Anticipated Discharge Date Admission Date: April 16, 2021 Subjective Patient is awake and alert. Patient comfortably. Currently on 3 L of nasal cannula.Reports shortness of breath is improved. Does have minimal cough. Nursing staff is concerned about aspiration. Rest of the review of system is negative. Review of Systems Review of Systems: All systems reviewed & are unremarkable except as noted in HPI & below Physical Exam Physical Exam: General: Awake and alert HENT: NCAT, MMM, EOMI Eyes: PERRLA Neck: Supple, normal range of motion CVS: normal rate and rhythm Resp: b/l crackles appreciated Abdomen: Soft, nondistended nontender Extremities: No c/c/e Neuro: face symmetric, no gross focal deficits appreciated Skin: warm and dry MSK: normal ROM Results & Data Results & Data ([facility]) Vital Signs (Past 12 Hours) Vital Signs Temp Pulse Pulse Resp BP Pulse Ox 04/19/21 11:49 36.5 C 69 18 155/86 H 96 04/19/21 08:10 71 04/19/21 08:00 36.6 C 77 18 126/75 94 04/19/21 04:38 36.4 C L 66 18 104/66 92 (1) Acute CHF Heart failure type: unspecified Qualified Code(s): I50.9 - Heart failure, unspecified
--- NOTE | 2021-04-19 14:37 | XRay Report ---
XR chest 1V portable HISTORY: 89 years-old Male aspiration? Acute shortness of breath with aspiration COMPARISON: Chest radiograph 04/16/2021 TECHNIQUE: Portable AP view of the chest FINDINGS: Cardiac silhouette is enlarged. Prior median sternotomy with a fractured superior sternotomy wire. Ca lcified plaque of the thoracic aorta. No pneumothorax. Pulmonary vascular congestion with interstitia l coarsening has slightly improved. Trace right and moderate left pleural effusions with bibasilar co nsolidation. Degenerative changes of the shoulders and spine. Gaseous distention of the stomach. IMPRESSION: 1. Cardiomegaly with slightly improved pulmonary edema. 2. Left greater than right layering pleural effusions with bibasilar consolidation redemonstrated. ACT 112: Negative or not required by law. The above report was generated using voice recognition software. It may contain grammatical, syntax o r spelling errors. Electronically signed by: Nolan Mckeon M.D. 04/19/2021 2:36 PM
--- NOTE | 2021-04-19 16:43 | XRay Report ---
XR chest 1V portable HISTORY: 89 years-old Male aspiration? Acute shortness of breath COMPARISON: Chest radiograph 04/19/2021 2:04 PM TECHNIQUE: Portable AP view of the chest FINDINGS: Cardiac silhouette is enlarged. Prior median sternotomy with a fractured superior sternotomy wire. Ca lcified plaque of the thoracic aorta. No pneumothorax. Pulmonary vascular congestion with interstitia l coarsening is unchanged. Small right and moderate left pleural effusions with bibasilar consolidati on appears similar to comparison. Degenerative changes of the shoulders and spine. Cervical spinal fu idalia hardware. Gaseous distention of the stomach. IMPRESSION: 1. Cardiomegaly with pulmonary edema, stable to slightly worsened. 2. Left greater than right layering pleural effusions with bibasilar consolidation redemonstrated. ACT 112: Negative or not required by law. The above report was generated using voice recognition software. It may contain grammatical, syntax o r spelling errors. Electronically signed by: Nolan Mckeon M.D. 04/19/2021 4:42 PM
[2021-04-19] MEDS: ASPIRIN 325 MG ECTAB PO SCH (20:54)
[2021-04-19] MEDS: DONEPEZIL HCL 10 MG TAB PO SCH (20:54)
[2021-04-19] MEDS: ATORVASTATIN 40 MG TAB PO SCH (20:54)
[2021-04-20] MEDS: OLANZapine 10 MG/2.1 ML SDV IM PRN ×2 (02:08→07:55)
[2021-04-20 02:48] LABS: Appearance Urine Clear (Clear); Bacteria Urine Automated Negative (Negative); Bilirubin Urine Negative (Negative); Blood Urine 3+ (Negative); Color Urine Yellow; Glucose Urine UA Negative (Negative); Ketones Urine Negative (Negative); Leukocyte Esterase Urine 1+ (Negative); Nitrite Urine Negative (Negative); Protein Urine 1+ (Negative); RBC Urine Automated >30 /hpf (0-4); Specific Gravity Urine 1.016 (1.000-1.030); Urobilinogen Urine Negative (Negative)
[2021-04-20] MEDS: HEPARIN SOD 5,000 UNIT/0.5 ML VIAL SQ SCH ×3 (05:35→21:32)
[2021-04-20] MEDS: FUROSEMIDE 40 MG/4 ML VIAL IV SCH (08:44)
[2021-04-20] MEDS: INSULIN ASPART 100 UNITS/ML 3 ML PEN SC SCH ×4 (08:52→21:30)
[2021-04-20] MEDS: dilTIAZem HCL 180 MG CAPCR PO SCH (10:19)
[2021-04-20] MEDS: SITagliptin PHOSPHATE 25 MG TAB PO SCH (10:19)
--- NOTE | 2021-04-20 19:44 | Hospitalist Progress Note ---
Date of Service April 20, 2021 Assessment & Plan (1) Acute HFrEF (heart failure with reduced ejection fraction): Plan: Chest x-ray revealing volume overload, patient with swelling and shortness of breath on admission, all consistent with acute CHF. Started on intravenous Lasix daily with mild troponin elevation thought secondary to CHF. Echocardiogram did reveal a small inferoseptal wall motion abnormality. Will discuss this with cardiology. History is unobtainable secondary to delirium. Since admission he is net 4 L and he has lost approximately 5 kg of weight in the last 5 days. He is still requiring oxygen supplementation but only a small amount and appears more compensated today. He continues to receive intravenous Lasix daily. (2) Acute respiratory failure with hypoxia: Plan: Likely secondary to CHF, improving with continued diuresis. There is no evidence of pneumonia at this point and he is not on antibiotics, remaining afebrile and doing well. (3) Pleural effusion, left: Plan: -CXR shows a moderate pleural effusion -Likely due to acute CHF -Monitor response after Lasix may need pulmonary evaluation for possible thoracentesis (4) Hyperglycemia: Plan: Hgb [id number] at 8.9, inpatient glucose at goal. -Has been on sliding scale insulin coverage -Glycemic pharmacy consult Appreciate certified lactation educator input. Start patient on Januvia and carb diet. (5) Abnormal renal function: Plan: Around his baseline of 1.3. (6) Paroxysmal atrial fibrillation: Plan: -Remote history found in a limited record review -Continue diltiazem -Likely not anticoagulated secondary to advanced age and fall risk (7) HTN (hypertension): Plan: Elevated, this is likely influenced by patient's agitation level. He is also off his lisinopril which will be restarted. (8) Delirium: Plan: Known history of dementia with current delirium. Patient incidentally mentioned pain in his shoulder, will give him IV Tylenol to help with this in case it is driving delirium. Continue one-to-one observation. Zyprexa as needed for combativeness. (9) DVT prophylaxis: Plan: Heparin CPR okay, invasive airway technique not okay. Dispo-uncertain at this time, pending PT and OT evaluations if able. Jayla Campbell DO [facility] and Anticipated Discharge Date Admission Date: April 16, 2021 Subjective 89-year-old man with history of dementia and CHF presented to the ER with worsening shortness of breath. He was found at home to have an oxygen saturation by EMS of 84% on room air. Patient's son noted edema over past several weeks per prior notes. He was started on intravenous Lasix and was also given a DuoNeb treatment for bronchospasm after which he did have improvement in work of breathing. He was admitted for CHF exacerbation and was continued on intravenous Lasix daily. Grey catheter was placed for strict ins and outs. An echocardiogram was performed Revealing severe concentric LVH with a subtle inferoseptal wall motion abnormality reduced ejection fraction of 45 to 50%, grade 3 diastolic dysfunction, a bioprosthetic aortic valve and elevated pulmonary artery systolic pressure. He has ongoing delirium and agitation and a history is unobtainable. He does however mention some pain in his shoulders and from what I can gather a history of arthritis. He has received Zyprexa twice today for combative behavior. Review of Systems Review of Systems: Cannot obtain review of systems secondary to delirium. Physical Exam Physical Exam: CONSTITUTIONAL: WNWD, vitals as above, generally in mild distress, angry and upset, delirious, lying in Tberg position in the bed. Combativeness limiting exam. EYES: normal conjunctivae, no scleral icterus ENT: external ear and nose normal, MMM RESPIRATORY: clear to auscultation bilaterally, no crackles, rales or wheezes, normal respiratory effort CARDIOVASCULAR: regular rate and rhythm, S1 and 2 heard without murmurs, gallops or rubs, no JVD, no peripheral edema GASTROINTESTINAL: soft, nontender, ND, no guarding MUSCULOSKELETAL: strength 5/5 throughout, head is normocephalic and atraumatic SKIN: warm and dry NEUROLOGIC: CN 2-12 grossly intact, normal cognition, normal speech, no tremor PSYCHIATRIC: alert cooperative and oriented to person, place and time. Results & Data Results & Data ([facility]) Vital Signs (Past 12 Hours) Vital Signs Temp Pulse Pulse Pulse Resp BP BP 04/20/21 19:16 36.6 C 115 H 24 166/115 H 04/20/21 16:04 36.6 C 103 H 22 166/97 H 04/20/21 16:00 102 H 04/20/21 11:48 36.7 C 100 H 20 167/94 H 04/20/21 08:00 99 H Pulse Ox 04/20/21 19:16 94 04/20/21 16:04 93 04/20/21 16:00 04/20/21 11:48 96 04/20/21 08:00 Laboratory Results Urine 04/20/21 Range/Units 02:30 Urine Color Yellow Urine Appearance Clear (Clear) Urine pH 5.0 (4.5-7.5) Ur Specific [place] 1.016 (1.000-1.030) Urine Protein 1+ H (Negative) Urine Glucose (UA) Negative (Negative) Medications Administered Current Inpatient Medications Aspirin (Aspirin 325 Mg Ectab) 325 mg PO HS GUMARO Stop: 05/16/21 20:59 Last Admin: 04/19/21 20:54 Dose: Not Given Documented by: Atorvastatin Calcium (Atorvastatin 40 Mg Tab) 40 mg PO HS GUMARO Stop: 05/16/21 20:59 Last Admin: 04/19/21 20:54 Dose: Not Given Documented by: Dextrose (Dextrose 50% 50 Ml Syringe) 25 - 50 ml IV UD PRN; Protocol PRN Reason: Hypoglycemia Protocol Stop: 05/16/21 19:18 Diltiazem HCl (Diltiazem Hcl 180 Mg Capcr) 180 mg PO QAM G[facility] Stop: 05/17/21 08:59 Last Admin: 04/20/21 10:19 Dose: Not Given Documented by: Donepezil HCl (Donepezil Hcl 10 Mg Tab) 10 mg PO HS G[facility]ARO Stop: 05/16/21 20:59 Last Admin: 04/19/21 20:54 Dose: Not Given Documented by: Furosemide (Furosemide 40 Mg/4 Ml Vial) 40 mg IV DAILY [facility] Stop: 05/17/21 08:59 Last Admin: 04/20/21 08:44 Dose: 40 mg Documented by: Glucagon (Glucagon For Inj 1 Mg Vial) 1 mg SQ UD PRN; Protocol PRN Reason: Hypoglycemia Protocol Stop: 05/16/21 19:18 Glucose (Glucose 10 Tabs/Tube) 4 - 8 tabs PO UD PRN; Protocol PRN Reason: Hypoglycemia Protocol Stop: 05/16/21 19:18 Glucose (Glucose 40% Gel 15 Gm Tube) 15 - 30 gm PO UD PRN; Protocol PRN Reason: Hypoglycemia Protocol Stop: 05/16/21 19:18 Heparin Sodium (Porcine) (Heparin Sod 5,000 Unit/0.5 Ml Vial) 5,000 units SQ Q8 G[facility] Stop: 05/16/21 21:59 Last Admin: 04/20/21 13:22 Dose: 5,000 units Documented by: Acetaminophen (Ofirmev) 1,000 mg in 100 mls @ 400 mls/hr IV Q8H [facility] Stop: 04/23/21 19:59 Insulin Aspart (Insulin Aspart 100 Units/Ml 3 Ml Pen) 0 units SC ACHS G[facility] Stop: 05/16/21 20:59 Last Admin: 04/20/21 17:09 Dose: 2 units Documented by: Miscellaneous (Carbohydrates For Hypoglycemia ) 15 - 30 gm PO UD PRN PRN Reason: Hypoglycemia Protocol Stop: 05/16/21 19:18 Nitroglycerin (Nitroglycerin Sl 0.4 Mg/Tab Tab) 0.4 mg SL UD PRN PRN Reason: Chest Pain Stop: 05/16/21 19:18 Olanzapine (Olanzapine 10 Mg/2.1 Ml Sdv) 2.5 mg IM Q4H PRN PRN Reason: Anxiety/Agitation Stop: 05/20/21 01:56 Last Admin: 04/20/21 07:55 Dose: 2.5 mg Documented by: Sitagliptin Phosphate (Sitagliptin Phosphate 25 Mg Tab) 25 mg PO DAILY [facility] Stop: 05/18/21 16:44 Last Admin: 04/20/21 10:19 Dose: Not Given Documented by:
[2021-04-20] MEDS: ACETAMINOPHEN 1,000 MG/100 ML VIAL IV SCH (21:22)
[2021-04-20] MEDS: DONEPEZIL HCL 10 MG TAB PO SCH (21:23)
[2021-04-20] MEDS: ATORVASTATIN 40 MG TAB PO SCH (21:32)
[2021-04-20] MEDS: ASPIRIN 325 MG ECTAB PO SCH (21:32)
[2021-04-21] MEDS: dilTIAZem HCL 180 MG CAPCR PO SCH ×2 (00:07→08:11)
[2021-04-21] MEDS: ACETAMINOPHEN 1,000 MG/100 ML VIAL IV SCH ×3 (04:14→20:22)
[2021-04-21] MEDS: HEPARIN SOD 5,000 UNIT/0.5 ML VIAL SQ SCH ×3 (04:14→20:15)
[2021-04-21] MEDS ORDERED: XOPENEX/ATROVENT 1.25mg/0.5MG NEB COMBO NEB STA (04:28)
[2021-04-21] MEDS ORDERED: IPRATROPIUM BROMIDE NEB SOLN 0.02% 2.5 ML VIAL INH STA (04:32)
[2021-04-21] MEDS ORDERED: LEVALBUTEROL 1.25MG/0.5ML NEB INH STA (04:32)
[2021-04-21] MEDS ORDERED: FUROSEMIDE 40 MG/4 ML VIAL IV SCH ×2 (04:45→21:00)
[2021-04-21 06:12] LABS: BUN Creatinine Ratio 24.1 (10-20); Calcium 9.4 mg/dl (8.5-10.1); Creatinine Clr Calc Pharmacy 40.2 ml/min; Est GFR (African American) 56.1 ml/min; Est GFR (Non-African American) 48.4 ml/min; Magnesium 2.3 mg/dl (1.8-2.4); Potassium 3.8 mmol/L (3.5-5.1)
--- NOTE | 2021-04-21 07:00 | XRay Report ---
XR chest 1V portable CLINICAL HISTORY: Shortness of breath. COMPARISON STUDY: Chest radiograph April 19, 2021. FINDINGS: Postoperative findings within the cervical spine are noted. There are median sternotomy wir es. Cardiomegaly is unchanged. Bilateral pleural effusions are noted with associated bibasilar opacit ies. Left pleural effusion has slightly improved. There is persistent pulmonary edema. IMPRESSION: 1. Persistent pulmonary edema. 2. Bilateral pleural effusions, left larger than the right, with associated bibasilar opacities. Left pleural effusion may have slightly decreased since prior exam. ACT 112: Negative or not required by law. Electronically signed by: Jules Ashton M.D. 04/21/2021 6:59 AM
[2021-04-21] MEDS: INSULIN ASPART 100 UNITS/ML 3 ML PEN SC SCH ×4 (08:10→21:18)
[2021-04-21] MEDS: SITagliptin PHOSPHATE 25 MG TAB PO SCH (08:11)
[2021-04-21] MEDS: lisinopril 20 MG TAB PO SCH ×2 (08:12→21:08)
--- NOTE | 2021-04-21 09:58 | Hospitalist Progress Note ---
Date of Service April 21, 2021 Assessment & Plan (1) Acute HFrEF (heart failure with reduced ejection fraction): Plan: Chest x-ray revealing volume overload, patient with swelling and shortness of breath on admission, all consistent with acute CHF. Started on intravenous Lasix daily with mild troponin elevation thought secondary to CHF. Echocardiogram did reveal a small inferoseptal wall motion abnormality. Will discuss this with cardiology. History is limited secondary to hospital delirium only somewhat improved this morning. Net 1.7L out overnight and down additional 2kg. (2) Acute respiratory failure with hypoxia: Plan: Likely secondary to CHF, improving with continued diuresis. There is no evidence of pneumonia at this point and he is not on antibiotics, remaining afebrile and doing well. (3) Pleural effusion, left: Plan: -CXR shows a moderate pleural effusion -Likely due to acute CHF -Monitor response after Lasix may need pulmonary evaluation for possible thoracentesis (4) Hyperglycemia: Plan: Hgb [id number] at 8.9, inpatient glucose at goal. -Has been on sliding scale insulin coverage -Glycemic pharmacy consult Appreciate ict educator input. Start patient on Januvia and carb diet. (5) Abnormal renal function: Plan: Around his baseline of 1.3. (6) Paroxysmal atrial fibrillation: Plan: -Remote history found in a limited record review -Continue diltiazem -Likely not anticoagulated secondary to advanced age and fall risk (7) HTN (hypertension): Plan: Elevated, this is likely influenced by patient's agitation level. He is also off his lisinopril which will be restarted. (8) Delirium: Plan: Known history of dementia with current delirium. Appears to have had a resolution of delirium overnight after starting IV Tylenol. High risk for delirium. Zyprexa PRN. Cont to reorient as needed. (9) DVT prophylaxis: Plan: Heparin CPR okay, invasive airway technique not okay. Dispo-uncertain at this time, pending PT and OT evaluations. [facility] and Anticipated Discharge Date Admission Date: April 16, 2021 Subjective 89-year-old man with history of dementia and CHF presented to the ER with worsening shortness of breath. Per nursing notes, some SOB overnight. Received additional Lasix dose and nebulized bronchodilator treatment. On minimal oxygen and today he is more oriented and reports breathing is improved. Still intermittent confusion so history is somewhat unreliable. He was started on scheduled IV Tylenol last night for reported shoulder pain and this may have helped to improve his confu idalia. This morning he is more cooperative and ate all his breakfast. Appears to be in good spirits. Denies any pain. Review of Systems Review of Systems: All systems reviewed and negative except as indicated in subjective above. ROS is limited as patient is still showing disorientation. Physical Exam Physical Exam: CONSTITUTIONAL: WNWD, vitals as above, NAD, clam and cooperative today. EYES: normal conjunctivae, no scleral icterus ENT: external ear and nose normal, MMM RESPIRATORY: coarse breath sounds bilaterally, no rales or wheezes, normal respiratory effort CARDIOVASCULAR: regular rate and rhythm, S1 and 2 heard without murmurs, gallops or rubs, no JVD, no peripheral edema GASTROINTESTINAL: soft, nontender, ND, no guarding MUSCULOSKELETAL: strength 5/5 throughout, head is normocephalic and atraumatic SKIN: warm and dry NEUROLOGIC: CN 2-12 grossly intact, normal cognition, normal speech, no tremor PSYCHIATRIC: alert cooperative and oriented to person, place and time. Results & Data Results & Data ([facility]) Vital Signs (Past 12 Hours) Vital Signs Temp Pulse Pulse Pulse Resp BP Pulse Ox 04/21/21 08:06 36.7 C 86 18 145/86 H 93 04/21/21 08:00 80 04/21/21 04:51 69 18 95 04/21/21 03:55 36.7 C 99 H 20 151/86 H 99 04/21/21 00:00 36.5 C 102 H 20 170/110 H 98 Laboratory Results [facility] 04/21/21 05:12 Sodium 139 Potassium 3.8 Chloride 103 Carbon Dioxide 31 BUN 31 H Creatinine 1.30 Glucose 157 H Calcium 9.4 Diagnostic Findings Chest X-Ray 04/21/21 04:46 XR chest 1V portable CLINICAL HISTORY: Shortness of breath. COMPARISON STUDY: Chest radiograph April 19, 2021. FINDINGS: Postoperative findings within the cervical spine are noted. There are median sternotomy wires. Cardiomegaly is unchanged. Bilateral pleural effusions are noted with associated bibasilar opacities. Left pleural effusion has slightly improved. There is persistent pulmonary edema. IMPRESSION: 1. Persistent pulmonary edema. 2. Bilateral pleural effusions, left larger than the right, with associated bibasilar opacities. Left pleural effusion may have slightly decreased since prior exam. ACT 112: Negative or not required by law. Electronically signed by: Jules Ashton M.D. 04/21/2021 6:59 AM Medications Administered Current Inpatient Medications Aspirin (Aspirin 325 Mg Ectab) 325 mg PO HS G[facility] Stop: 05/16/21 20:59 Last Admin: 04/20/21 21:32 Dose: 325 mg Documented by: Atorvastatin Calcium (Atorvastatin 40 Mg Tab) 40 mg PO HS [facility] Stop: 05/16/21 20:59 Last Admin: 04/20/21 21:32 Dose: 40 mg Documented by: Dextrose (Dextrose 50% 50 Ml Syringe) 25 - 50 ml IV UD PRN; Protocol PRN Reason: Hypoglycemia Protocol Stop: 05/16/21 19:18 Diltiazem HCl (Diltiazem Hcl 180 Mg Capcr) 180 mg PO QAM [facility] Stop: 05/20/21 22:44 Last Admin: 04/21/21 08:11 Dose: 180 mg Documented by: Donepezil HCl (Donepezil Hcl 10 Mg Tab) 10 mg PO HS [facility] Stop: 05/16/21 20:59 Last Admin: 04/20/21 21:23 Dose: 10 mg Documented by: Furosemide (Furosemide 40 Mg/4 Ml Vial) 40 mg IV DAILY [facility] Stop: 05/21/21 04:44 Last Admin: 04/21/21 04:54 Dose: 40 mg Documented by: Glucagon (Glucagon For Inj 1 Mg Vial) 1 mg SQ UD PRN; Protocol PRN Reason: Hypoglycemia Protocol Stop: 05/16/21 19:18 Glucose (Glucose 10 Tabs/Tube) 4 - 8 tabs PO UD PRN; Protocol PRN Reason: Hypoglycemia Protocol Stop: 05/16/21 19:18 Glucose (Glucose 40% Gel 15 Gm Tube) 15 - 30 gm PO UD PRN; Protocol PRN Reason: Hypoglycemia Protocol Stop: 05/16/21 19:18 Heparin Sodium (Porcine) (Heparin Sod 5,000 Unit/0.5 Ml Vial) 5,000 units SQ Q8 [facility] Stop: 05/16/21 21:59 Last Admin: 04/21/21 04:14 Dose: 5,000 units Documented by: Acetaminophen (Ofirmev) 1,000 mg in 100 mls @ 400 mls/hr IV Q8H [facility] Stop: 04/23/21 19:59 Last Infusion: 04/21/21 04:33 Dose: Infused Documented by: Insulin Aspart (Insulin Aspart 100 Units/Ml 3 Ml Pen) 0 units SC ACHS [facility] Stop: 05/16/21 20:59 Last Admin: 04/21/21 08:10 Dose: 6 units Documented by: Lisinopril (Lisinopril 20 Mg Tab) 20 mg PO BID [facility] Stop: 05/21/21 08:59 Last Admin: 04/21/21 08:12 Dose: 20 mg Documented by: Miscellaneous (Carbohydrates For Hypoglycemia ) 15 - 30 gm PO UD PRN PRN Reason: Hypoglycemia Protocol Stop: 05/16/21 19:18 Nitroglycerin (Nitroglycerin Sl 0.4 Mg/Tab Tab) 0.4 mg SL UD PRN PRN Reason: Chest Pain Stop: 05/16/21 19:18 Olanzapine (Olanzapine 10 Mg/2.1 Ml Sdv) 2.5 mg IM Q4H PRN PRN Reason: Anxiety/Agitation Stop: 05/20/21 01:56 Last Admin: 04/20/21 07:55 Dose: 2.5 mg Documented by: Sitagliptin Phosphate (Sitagliptin Phosphate 25 Mg Tab) 25 mg PO DAILY [facility] Stop: 05/18/21 16:44 Last Admin: 04/21/21 08:11 Dose: 25 mg Documented by:
--- NOTE | 2021-04-21 11:29 | Cardiology Consultation ---
Date of Consultation April 21, 2021 Assessment & Plan (1) Acute on chronic congestive heart failure: (2) Pleural effusion, bilateral: (3) Atrial fibrillation: (4) S/P AVR (aortic valve replacement): (5) S/P CABG (coronary artery bypass graft): (6) Delirium: 89-year-old patient admitted with acute respiratory failure secondary to congestive heart failure with bilateral pleural effusions. Recommend titration of Lasix to 40 mg twice daily. Follow daily weight, GFR, fluid balance, and electrolytes. Atrial fibrillation with controlled ventricular response on telemetry. Patient is not chronically anticoagulated per review of records. At present, he does not appear to be a candidate for long-term anticoagulation due to dementia, and fall risk. Patient with history of advanced dementia living with his 89-year-old . Per review of records, is resistant to having care come into the home or relocation to extended care facility. Continue supportive care as per internal medicine. History of Present Illness Reason for Consultation: Congestive heart failure, aortic valve replacement, wall motion abnormality on echocardiogram. Requesting Physician: Dr. Campbell Attending Physician: Jayla Campbell, DO History of Present Illness 89-year-old admitted 04/16/2021 secondary to acute decompensated heart failure. Echocardiogram revealing borderline reduced LV systolic function with ejection fraction 45/50% and evidence of bioprosthetic aortic valve replacement. Patient managed with intravenous Lasix since admission with approximately 15 pound weight loss. Receiving furosemide 40 mg daily. Serum creatinine ranging from 1.2-1.30. No significant troponin elevation on admission. ECG reveals atrial fibrillation with controlled ventricular response. Telemetry demonstrates atrial fibrillation with average heart rate in the 90s. Patient is not chronically anticoagulated. Duration of atrial fibrillation unknown. Chest x-ray on admission demonstrating congestive heart failure with bilateral pleural effusions, left greater than right. Repeat chest x-ray performed today demonstrates persistent pulmonary edema with bilateral pleural effusions. Currently, patient is saturating 93% on room air, although, supplemental oxygen is ordered. He is a poor historian due to underlying dementia/? Delirium. Unable to answer any questions appropriately. Allergies Allergy/AdvReac Type Severity Reaction Status Date / Time morphine Allergy Unknown Unverified 04/16/21 15:28 Home Medications Medication Instructions Recorded Confirmed Type aspirin 325 mg tablet 325 mg PO HS 04/16/21 04/16/21 History atorvastatin 40 mg tablet (Lipitor) 40 mg PO HS 04/16/21 04/16/21 History diltiazem HCl 180 mg 180 mg PO QAM 04/16/21 04/16/21 History capsule,extended release 24 hr (Cardizem CD) donepezil 10 mg tablet (Aricept) 10 mg PO HS 04/16/21 04/16/21 History furosemide 40 mg tablet (Lasix) See Rx Instructions .ROUTE .COMPLEX 04/16/21 04/16/21 History lisinopril 20 mg tablet (Prinivil) 20 mg PO BID 04/16/21 04/16/21 History Patient History Medical History CAD (coronary artery disease) HTN (hypertension) Paroxysmal atrial fibrillation Surgical History History of neck surgery S/P aortic valve replacement with bioprosthetic valve S/P CABG (coronary artery bypass graft) Family History Other Family history unobtainable Social History Smoking Status: Never smoker Hx Alcohol Use: No Hx Substance Use: No Preferred Language: Fijian Communication Ability: Impaired [place] Controlled Atmospheric Furnace Required: No Beliefs That Will Affect Care: None marital status: Current Living Situation: Spouse and Family How many Children do You have: 3 Other Information That Helps Us Care for You: No Feels Safe at Home: Yes Safety Concerns: Feels Safe At This Time Assistive Devices: Glasses and Oxygen - Continuous Review of Systems Review of Systems: Unobtainable due to cognitive status Physical Exam Constitutional: well nourished; no acute distress Respiratory: no respiratory distress and no labored breathing Auscultation: + diminished lung sounds (Bases bilateral) and + rales (Bases bilateral); no rhonchi and no wheezes Cardiovascular: Rate/Rhythm: + irregularly irregular Heart Sounds: normal S1 and normal S2; no murmur Vessels: + JVD and radial pulses present; no carotid bruit Gastrointestinal (Abdomen): Inspection/Auscultation: abdomen normal to inspection and normal bowel sounds; abdomen not distended Percus idalia/Palpation: abdomen soft; abdomen nontender, no guarding and abdomen not rigid Neurologic: moves all extremities; no focal motor deficits Psychiatric: Orientation: oriented to person Apperance: + disheveled Results & Data ([facility]) Vital Signs (Past 12 Hours) Vital Signs Temp Pulse Pulse Pulse Resp BP Pulse Ox 04/21/21 08:06 36.7 C 86 18 145/86 H 93 04/21/21 08:00 80 04/21/21 04:51 69 18 95 04/21/21 03:55 36.7 C 99 H 20 151/86 H 99
[2021-04-21] MEDS: DONEPEZIL HCL 10 MG TAB PO SCH (20:11)
[2021-04-21] MEDS: ASPIRIN 325 MG ECTAB PO SCH (20:11)
[2021-04-21] MEDS: ATORVASTATIN 40 MG TAB PO SCH (20:11)
[2021-04-21] MEDS: OLANZapine 10 MG/2.1 ML SDV IM PRN (22:11)
[2021-04-22] MEDS: OLANZapine 10 MG/2.1 ML SDV IM PRN (02:11)
[2021-04-22] MEDS: ACETAMINOPHEN 1,000 MG/100 ML VIAL IV SCH ×3 (05:09→20:56)
[2021-04-22] MEDS ORDERED: OLANZapine 10 MG/2.1 ML SDV IM STA (05:18)
[2021-04-22] MEDS: FUROSEMIDE 40 MG/4 ML VIAL IV SCH ×2 (05:32→20:58)
[2021-04-22] MEDS: HEPARIN SOD 5,000 UNIT/0.5 ML VIAL SQ SCH ×3 (05:33→21:25)
[2021-04-22 06:51] LABS: Hemoglobin 12.2 g/dL (14.0-18.0); Mean Corpuscular Hemoglobin 31.8 pg (25-34); Mean Corpuscular Hgb Conc 32.1 g/dL (32-36); Mean Platelet Volume 10.8 fL (7.4-10.4); Platelet Count 214 K/uL (130-400); RDW Coefficient of Variation 13.9 % (11.5-14.5); RDW Standard Deviation 49.7 fL (36.4-46.3); Red Blood Count 3.84 M/uL (4.7-6.1); White Blood Count 9.66 K/uL (4.8-10.8)
[2021-04-22 07:18] LABS: Appearance Urine Cloudy (Clear); Bacteria Urine Automated Negative (Negative); Bilirubin Urine Negative (Negative); Blood Urine 1+ (Negative); Color Urine Yellow; Glucose Urine UA Negative (Negative); Ketones Urine Negative (Negative); Leukocyte Esterase Urine Negative (Negative); Nitrite Urine Negative (Negative); Protein Urine Negative (Negative); Specific Gravity Urine 1.014 (1.000-1.030); Urobilinogen Urine Negative (Negative)
[2021-04-22] MEDS: INSULIN ASPART 100 UNITS/ML 3 ML PEN SC SCH ×4 (08:36→21:24)
--- NOTE | 2021-04-22 09:41 | Cardiology Progress Note ---
Date of Service April 22, 2021 Assessment & Plan (1) Acute on chronic congestive heart failure: (2) Pleural effusion, bilateral: (3) Atrial fibrillation: (4) S/P AVR (aortic valve replacement): (5) S/P CABG (coronary artery bypass graft): (6) Delirium: Plan: 89-year-old patient admitted with acute respiratory failure secondary to congestive heart failure with bilateral pleural effusions. Volume status appears euvolemic on limited examination. Continue IV furosemide today, reassess ongoing need in the morning. Chemistry panel requested. Follow I/O's, GFR, fluid balance, electrolytes, and the pleural effusions. Mild reduction in LV systolic function. History of CABG and AVR. EF 45-50%. Recommend switching diltiazem to metoprolol succinate. Continue ACEI therapy. Pending today's metabolic panel, consider low dose spironolactone (12.5 mg MWF) next. Atrial fibrillation. Rates controlled. Patient not anticoagulated per review of records. At present, he does not appear to be a candidate for long-term anticoagulation due to dementia, and fall risk. Recommend rate control without anticoagulation. Admission and Anticipated Discharge Date Admission Date: April 16, 2021 Supervising Physician Co-Signing Physician Notes Patient seen and examined at the bedside. Sedated after receiving Zyprexa. Lying supine with adequate oxygenation. Review of systems cannot be completed due to mental status. PE: VSS. Gen: NAD. Heart: Regular, normal S1-S2. Pulmonary: Diminished lung sounds at the bases bilateral. Extremities: No edema. A/P: Agree with above PA-C history, physical exam, assessment and plan. Continue IV Lasix. Reassess volume status in a.m. Repeat BMP. Subjective Patient seen and examined. Chart, medications, and telemetry reviewed. Demented. Agitated/combative last night. Received Zyprexa. Sleeping currently. I/O's negative 4,922 mL's overall. [id number] kg to 83.5 kg Review of Systems Review of Systems: A complete/accurate review of systems was unable to be obtained. Physical Exam Physical Exam: General: No acute distress. Sleeping. HENT: Normocephalic. Atraumatic. Neck: No carotid bruits. No JVD. No HJR. Heart: Irregularly irregular. Soft systolic murmur. Lungs: Clear anteriorly. No wheeze. Abdomen: +BS. Soft. Nontender. No masses or organomegaly. Extremities: No clubbing, cyanosis, or edema. Pulses: Posterior tibial=1/4. Results & Data ([facility]) Vital Signs (Past 12 Hours) Vital Signs Temp Pulse Pulse Resp BP Pulse Ox 04/22/21 04:00 36.9 C 100 H 25 H 141/89 H 95 04/21/21 22:21 36.5 C 84 16 152/89 H 95 Diagnostic Findings Chest x-ray on 04/21/2021 revealed persistent pulmonary edema, bilateral pleural effusions, left larger than the right, with associated bibasilar opacities. Left pleural effusion may have slightly decreased since prior exam. April 17, 2021 TTE Interpretation Summary ([facility], Dr. Ty): Technically limited due to poor acoustic windows. Severe concentric LVH. Subtle inferoseptal wall motion abnormality. Mildly reduced LV systolic function. EF 45-50%. Grade III diastolic dysfunction, consistent with markedly increased left atrial pressure. Severely dilated left atrium. Bioprosthetic aortic valve. Aortic valve prosthetic gradients are appropriate for this prosthesis. No significant prosthetic regurgitation. Mild mitral regurgitation. Mild tricuspid regurgitation. Pulmonary artery systolic pressure mildly elevated, 43 mmHg. Telemetry: Atrial fibrillation in the 70's.
[2021-04-22] MEDS: dilTIAZem HCL 180 MG CAPCR PO SCH (10:18)
[2021-04-22 10:35] LABS: BUN Creatinine Ratio 22.3 (10-20); Calcium 9.8 mg/dl (8.5-10.1); Est GFR (African American) 51.3 ml/min; Est GFR (Non-African American) 44.2 ml/min; Magnesium 2.2 mg/dl (1.8-2.4); Potassium 3.8 mmol/L (3.5-5.1)
[2021-04-22] MEDS: SITagliptin PHOSPHATE 25 MG TAB PO SCH (14:20)
[2021-04-22] MEDS: lisinopril 20 MG TAB PO SCH ×2 (14:20→21:27)
[2021-04-22] MEDS: METOPROLOL SUCC 25MG EXT REL TAB PO SCH (15:06)
--- NOTE | 2021-04-22 15:37 | Hospitalist Progress Note ---
Date of Service April 22, 2021 Assessment & Plan (1) Acute HFrEF (heart failure with reduced ejection fraction): Plan: Chest x-ray revealing volume overload, patient with swelling and shortness of breath on admission, all consistent with acute CHF. Started on intravenous Lasix daily with mild troponin elevation thought secondary to CHF. Echocardiogram did reveal a small inferoseptal wall motion abnormality. Urine output of roughly 1.8 L in the last 24 hours. Appreciate cardiology input. Continue with daily IV Lasix 40 mg BID. Continue to monitor ins and outs along with daily weights. (2) Acute respiratory failure with hypoxia: Plan: Likely secondary to CHF, improving with continued diuresis. There is no evidence of pneumonia at this point and he is not on antibiotics, remaining af ebrile and doing well. (3) Pleural effusion, left: Plan: -CXR shows a moderate pleural effusion -Likely due to acute CHF We will repeat chest x-ray tomorrow to follow-up. (4) Hyperglycemia: Plan: Hgb [id number] at 8.9, inpatient glucose at goal. -Has been on sliding scale insulin coverage -Glycemic pharmacy consult Appreciate consumer educator input. Start patient on Januvia and carb diet. (5) Abnormal renal function: Plan: Around his baseline of 1.3. (6) Paroxysmal atrial fibrillation: Plan: -Remote history found in a limited record review -Continue diltiazem -Likely not anticoagulated secondary to advanced age and fall risk (7) HTN (hypertension): Plan: Elevated, this is likely influenced by patient's agitation level. Continue lisinopril 20 mg twice daily. (8) Delirium: Plan: Known history of dementia with current delirium. High risk for delirium. Zyprexa PRN. Cont to reorient as needed. (9) DVT prophylaxis: Plan: Heparin CPR okay, invasive airway technique not okay. Dispo-uncertain at this time, pending PT and OT evaluations. Admission and Anticipated Discharge Date Admission Date: April 16, 2021 Subjective Patient is pleasantly confused today. Currently on 4 L of nasal cannula. Does not appear to be in any distress. Could not obtain full review of system given his current mental status. Review of Systems Review of Systems: Unobtainable due to cognitive status Physical Exam Physical Exam: General: Awake and alert HENT: NCAT, MMM, EOMI Eyes: PERRLA Neck: Supple, normal range of motion CVS: normal rate and rhythm Resp: b/l crackles appreciated Abdomen: Soft, nondistended nontender Extremities: No c/c/e Neuro: face symmetric, no gross focal deficits appreciated Skin: warm and dry MSK: normal ROM Results & Data Results & Data ([facility]) Vital Signs (Past 12 Hours) Vital Signs Temp Pulse Pulse Pulse Resp BP Pulse Ox 04/22/21 15:16 36.6 C 88 19 143/93 H 100 04/22/21 11:12 36.6 C 130 H 19 155/89 H 98 04/22/21 09:35 68 04/22/21 04:00 36.9 C 100 H 25 H 141/89 H 95
[2021-04-22] MEDS: ATORVASTATIN 40 MG TAB PO SCH (21:26)
[2021-04-22] MEDS: ASPIRIN 325 MG ECTAB PO SCH (21:26)
[2021-04-22] MEDS: DONEPEZIL HCL 10 MG TAB PO SCH (21:27)
[2021-04-23] MEDS: ACETAMINOPHEN 1,000 MG/100 ML VIAL IV SCH ×2 (04:55→12:00)
[2021-04-23] MEDS: HEPARIN SOD 5,000 UNIT/0.5 ML VIAL SQ SCH ×3 (06:38→20:55)
[2021-04-23] MEDS: INSULIN ASPART 100 UNITS/ML 3 ML PEN SC SCH ×4 (08:43→20:52)
[2021-04-23] MEDS: FUROSEMIDE 40 MG/4 ML VIAL IV SCH ×2 (08:45→19:47)
[2021-04-23] MEDS: lisinopril 20 MG TAB PO SCH ×3 (08:47→19:48)
[2021-04-23] MEDS: METOPROLOL SUCC 25MG EXT REL TAB PO SCH ×3 (08:48→19:46)
[2021-04-23] MEDS: SITagliptin PHOSPHATE 25 MG TAB PO SCH ×2 (08:48→11:53)
[2021-04-23 09:51] LABS: Albumin Level 2.9 gm/dl (3.4-5.0); BUN Creatinine Ratio 24.3 (10-20); Calcium 9.1 mg/dl (8.5-10.1); Creatinine Clr Calc Pharmacy 42.5 ml/min; Est GFR (African American) 62.4 ml/min; Est GFR (Non-African American) 53.8 ml/min; Potassium 3.7 mmol/L (3.5-5.1)
[2021-04-23 09:54] LABS: Albumin Globulin Ratio 0.7 (0.9-2); Bilirubin,Total 0.6 mg/dl (0.2-1); Globulin 4.2 gm/dl (2.5-4.0); Total Protein 7.1 gm/dl (6.4-8.2)
--- NOTE | 2021-04-23 10:19 | Cardiology Progress Note ---
Date of Service April 23, 2021 Assessment & Plan (1) Acute on chronic congestive heart failure: (2) Pleural effusion, bilateral: (3) Atrial fibrillation: (4) S/P AVR (aortic valve replacement): (5) S/P CABG (coronary artery bypass graft): (6) Delirium: Plan: 89-year-old patient admitted with acute respiratory failure secondary to congestive heart failure with bilateral pleural effusions. Volume status appears euvolemic on limited examination. Continue IV furosemide today, reassess ongoing need in the morning. Supplement potassium chloride today x 1. Follow I/O's, GFR, fluid balance, electrolytes, and the pleural effusions. Mild reduction in LV systolic function. History of CABG and AVR. EF 45-50%. Diltiazem changed to metoprolol succinate, receiving the first dose this morning. Maintain telemetry. Continue ACEI therapy. Atrial fibrillation. Rates controlled. Patient not anticoagulated per review of records. At present, he does not appear to be a candidate for long-term anticoagulation due to dementia, and fall risk. Recommend rate control without anticoagulation. Admission and Anticipated Discharge Date Admission Date: April 16, 2021 Supervising Physician Co-Signing Physician Notes Patient seen and examined at the bedside. Poor historian due to underlying dementia. Fluid balance -1126 cc. Lying supine with adequate oxygenation. Review of systems cannot be completed due to mental status. PE: VSS. Gen: NAD. Heart: Regular, normal S1-S2. Pulmonary: Diminished lung sounds at the bases bilateral. Extremities: No edema. A/P: Agree with above PA-C history, physical exam, assessment and plan. Continue IV Lasix. Reassess volume status in a.m. Repeat BMP. Agree with tra nsition of calcium channel abelino therapy to beta-abelino. Monitor telemetry. Subjective Patient seen and examined. Chart, medications, and telemetry reviewed. States "I just want to be left alone." No reported chest pain, dyspnea, PND, or pain. I/O's negative 6,473 mL's overall. Telemetry: Atrial fibrillation/flutter with a controlled ventricular response. Review of Systems Review of Systems: A complete/accurate review of systems was unable to be obtained. Physical Exam Physical Exam: General: No acute distress. HENT: Normocephalic. Atraumatic. Neck: No carotid bruits. No JVD. No HJR. Heart: Irregularly irregular in the 70's. Soft systolic murmur. Lungs: Clear anteriorly. No wheeze. Abdomen: +BS. Soft. Nontender. No masses or organomegaly. Extremities: No clubbing, cyanosis, or edema. Pulses: Posterior tibial=1/4. Results & Data ([facility]) Vital Signs (Past 12 Hours) Vital Signs Temp Pulse Pulse Resp BP BP Pulse Ox 04/23/21 07:49 36.7 C 83 19 135/78 98 04/23/21 04:00 36.9 C 72 20 127/78 100 04/22/21 23:00 36.2 C L 75 73 18 120/74 97 Laboratory Results Laboratory Results - last 24 hr 04/22/21 04/22/21 04/22/21 05:41 16:34 20:49 Sodium 142 Potassium 3.8 Chloride 104 Carbon Dioxide 30 Anion Gap 8.0 BUN 31 H Creatinine 1.40 Est Cr Clr Drug Dosing 37.0 Est GFR ( Amer) 51.3 Est GFR (Non-Af Amer) 44.2 BUN/Creatinine Ratio 22.3 H Glucose 155 H POC Glucose 145 H 151 H Calcium 9.8 Magnesium 2.2 Total Bilirubin AST ALT Alkaline Phosphatase Total Protein Albumin Globulin Albumin/Globulin Ratio 04/23/21 04/23/21 04/23/21 07:24 09:13 09:19 Sodium 142 Potassium 3.7 Chloride 103 Carbon Dioxide 33 H Anion Gap 6.0 BUN 29 H Creatinine 1.19 Est Cr Clr Drug Dosing 42.5 Est GFR ( Amer) 62.4 Est GFR (Non-Af Amer) 53.8 BUN/Creatinine Ratio 24.3 H Glucose 131 H POC Glucose 122 H 146 H Calcium 9.1 Magnesium Total Bilirubin 0.6 AST 17 ALT 18 Alkaline Phosphatase 92 Total Protein 7.1 Albumin 2.9 L Globulin 4.2 H Albumin/Globulin Ratio 0.7 L
[2021-04-23] MEDS ORDERED: POTASSIUM CHLORIDE CRTAB 20 MEQ TABCR PO ONE (10:22)
--- NOTE | 2021-04-23 11:55 | Fluoroscopy Report ---
FL video swallow CLINICAL HISTORY: assess for aspiration TECHNIQUE: Video fluoroscopy of the pharyngeal region was performed as barium mixtures of varying con sistencies were administered to the patient by the speech pathologist. A formal esophagram was not pe rformed. COMPARISON: None. FINDINGS: The patient swallowed the different barium consistencies without difficulty. Penetration an d silent aspiration is seen with thin barium. No aspiration is seen with thick or honey texture bariu m. Pooling of barium was noted in the bilateral piriform sinuses and valleculae. Total fluoroscopy time: 2.9 minutes. IMPRESSION: Penetration as well as aspiration with thin barium. Please see the speech pathology report for further details. ACT 112: Negative or not required by law. Electronically signed by: Harinder Gill M.D. 04/23/2021 11:54 AM
--- NOTE | 2021-04-23 14:48 | Hospitalist Progress Note ---
Date of Service April 23, 2021 Assessment & Plan (1) Acute HFrEF (heart failure with reduced ejection fraction): Plan: Chest x-ray revealing volume overload, patient with swelling and shortness of breath on admission, all consistent with acute CHF. Started on intravenous Lasix daily with mild troponin elevation thought secondary to CHF. Echocardiogram did reveal a small inferoseptal wall motion abnormality. Urine output of roughly 1.4 L in the last 24 hours. Appreciate cardiology input. Continue with daily IV Lasix 40 mg BID. Continue to monitor ins and outs along with daily weights. (2) Acute respiratory failure with hypoxia: Plan: Likely secondary to CHF, improving with continued diuresis. There is no evidence of pneumonia at this point and he is not on antibiotics. He is afebrile. Most recent WBC is within normal limit. Dysphagia Patient has been experiencing aspiration with thin liquids. Appreciate speech therapy input. Change to minced and moist diet with nectar thick liquids. Can have ice chips for comfort. (3) Pleural effusion, left: Plan: -CXR shows a moderate pleural effusion -Likely due to acute CHF (4) Hyperglycemia: Plan: Hgb [id number] at 8.9, inpatient glucose at goal. -Has been on sliding scale insulin coverage -Glycemic pharmacy consult Appreciate door closer input. Start patient on Januvia and carb diet. (5) Abnormal renal function: Plan: Around his baseline of 1.3. (6) Paroxysmal atrial fibrillation: Plan: -Remote history found in a limited record review -Likely not anticoagulated secondary to advanced age and fall risk Diltiazem has been discontinued patient is started on metoprolol. (7) HTN (hypertension): Plan: Elevated, this is likely influenced by patient's agitation level. Continue lisinopril 20 mg twice daily. (8) Delirium: Plan: Known history of dementia with current delirium. High risk for delirium. Zyprexa PRN. Cont to reorient as needed. Discontinue IV Tylenol today. (9) DVT prophylaxis: Plan: Heparin CPR okay, invasive airway technique not okay. Dispo-uncertain at this time, pending PT and OT evaluations. Admission and Anticipated Discharge Date Admission Date: April 16, 2021 Subjective Patient appears a bit more lethargic today. Does respond to painful stimuli and mumbles. Appears angry and wants to be left alone. Review of Systems Review of Systems: Unobtainable due to cognitive status Physical Exam Physical Exam: General: Somnolent HENT: NCAT, MMM, EOMI Eyes: PERRLA Neck: Supple, normal range of motion CVS: normal rate and rhythm Resp: b/l creased breath sounds Abdomen: Soft, nondistended nontender Extremities: No c/c/e Neuro: face symmetric, moves all 4 extremities Skin: warm and dry MSK: normal ROM Results & Data Results & Data ([facility]) Vital Signs (Past 12 Hours) Vital Signs Temp Pulse Pulse Resp BP BP Pulse Ox 04/23/21 10:55 78 04/23/21 07:49 36.7 C 83 19 135/78 98 04/23/21 04:00 36.9 C 72 20 127/78 100
[2021-04-23 15:37] LABS: Basophils # (auto) 0.02 K/uL (0-0.2); Basophils % (auto) 0.2 %; Eosinophils # (auto) 0.46 K/uL (0-0.5); Eosinophils % (auto) 4.6 %; Hematocrit (blood only) 37.8 % (42-52); Hemoglobin 11.8 g/dL (14.0-18.0); Immature Granulocytes # (auto) 0.01 K/uL (0.00-0.02); Immature Granulocytes % (auto) 0.1 %; Lymphocytes # (auto) 0.92 K/uL (1.2-3.4); Lymphocytes % (auto) 9.3 %; Mean Corpuscular Hemoglobin 31.4 pg (25-34); Mean Corpuscular Hgb Conc 31.2 g/dL (32-36); Mean Corpuscular Volume 100.5 fL (80-100); Mean Platelet Volume 10.6 fL (7.4-10.4); Monocytes # (auto) 0.98 K/uL (0.11-0.59); Monocytes % (auto) 9.9 %; Neutrophils # (auto) 7.51 K/uL (1.4-6.5); Neutrophils % (auto) 75.9 %; Platelet Count 227 K/uL (130-400); RDW Coefficient of Variation 13.7 % (11.5-14.5); Red Blood Count 3.76 M/uL (4.7-6.1)
[2021-04-23 15:58] LABS: Magnesium 2.2 mg/dl (1.8-2.4); Phosphorus 3.3 mg/dl (2.5-4.9)
[2021-04-23] MEDS: ASPIRIN 325 MG ECTAB PO SCH (19:46)
[2021-04-23] MEDS: DONEPEZIL HCL 10 MG TAB PO SCH (19:47)
[2021-04-23] MEDS: ATORVASTATIN 40 MG TAB PO SCH (19:48)
[2021-04-23] MEDS: OLANZapine 10 MG/2.1 ML SDV IM PRN (22:52)
[2021-04-24] MEDS: HEPARIN SOD 5,000 UNIT/0.5 ML VIAL SQ SCH ×3 (06:14→20:03)
[2021-04-24] MEDS: SITagliptin PHOSPHATE 25 MG TAB PO SCH (08:25)
[2021-04-24] MEDS: lisinopril 20 MG TAB PO SCH ×2 (08:25→20:02)
[2021-04-24] MEDS: FUROSEMIDE 40 MG/4 ML VIAL IV SCH (08:27)
[2021-04-24] MEDS: INSULIN ASPART 100 UNITS/ML 3 ML PEN SC SCH ×4 (08:28→21:17)
[2021-04-24 09:47] LABS: Calcium 9.6 mg/dl (8.5-10.1); Creatinine Clr Calc Pharmacy 34.5 ml/min; Est GFR (African American) 47.9 ml/min; Est GFR (Non-African American) 41.4 ml/min; Potassium 3.6 mmol/L (3.5-5.1)
[2021-04-24] MEDS ORDERED: POTASSIUM CHLORIDE 10 MEQ TABCR PO ONE (10:13)
--- NOTE | 2021-04-24 10:22 | Cardiology Progress Note ---
Date of Service April 24, 2021 Assessment & Plan (1) Acute on chronic congestive heart failure: (2) Pleural effusion, bilateral: (3) Atrial fibrillation: (4) S/P AVR (aortic valve replacement): (5) S/P CABG (coronary artery bypass graft): (6) Delirium: Plan: 89-year-old patient admitted with acute respiratory failure secondary to congestive heart failure with bilateral pleural effusions. Volume status appears euvolemic on limited examination. Discontinue IV furosemide. Start oral furosemide in the AM of 04/25/2021. Supplement potassium chloride today x 1. Chest x-ray ordered to reassess the left pleural effusion. Mild reduction in LV systolic function. History of CABG and AVR. EF 45-50%. Diltiazem changed to metoprolol succinate. Continue ACEI therapy. Atrial fibrillation. Rates controlled. Continue metoprolol as prescribed. Patient not anticoagulated per review of records. Patient does not appear to be a candidate for long-term anticoagulation due to dementia, and fall risk. Recommend continuation of rate control without anticoagulation. Diltiazem notably discontinued due to mild reduction in LV systolic function; prescribed metoprolol succinate. Admission and Anticipated Discharge Date Admission Date: April 16, 2021 Supervising Physician Co-Signing Physician Notes Patient seen and examined at the bedside. Poor historian due to underlying dementia. Fluid balance -895 cc. Lying supine with adequate oxygenation. Review of systems cannot be completed due to mental status. PE: VSS. Gen: NAD. Heart: Regular, normal S1-S2. Pulmonary: Diminished lung sounds at the bases bilateral. Extremities: No edema. A/P: Agree with above PA-C history, physical exam, assessment and plan. Transition to oral furosemide in a.m. Calcium channel abelino transition to metoprolol. Monitor telemetry. Patient is not a candidate for long-term anticoagulation due to fall risk and dementia. Subjective Patient seen and examined. Chart, medications, and telemetry reviewed. More alert. Pleasantly confused. No chest pain, shortness of breath, PND, or pain. Telemetry: Atrial fibrillation/flutter with a controlled ventricular response. Review of Systems Review of Systems: A complete/accurate review of systems was unable to be obtained. Physical Exam Physical Exam: General: No acute distress. HENT: Normocephalic. Atraumatic. Neck: No carotid bruits. No JVD. No HJR. Heart: Irregularly irregular in the 70's. Soft systolic murmur. Lungs: Clear anteriorly. No wheeze. Abdomen: +BS. Soft. Nontender. No masses or organomegaly. Extremities: No clubbing, cyanosis, or edema. Pulses: Posterior tibial=1/4. Results & Data ([facility]) Vital Signs (Past 12 Hours) Vital Signs Temp Pulse Pulse Resp BP BP Pulse Ox 04/24/21 08:00 36.9 C 86 20 133/88 91 04/24/21 04:48 36.6 C 86 18 109/73 92 04/24/21 00:14 70 04/23/21 23:05 36.8 C 71 22 113/73 94 Laboratory Results Laboratory Results - last 24 hr 04/23/21 04/23/21 04/23/21 11:40 14:58 14:58 WBC 9.90 RBC 3.76 L Hgb 11.8 L Hct 37.8 L MCV 100.5 H MCH 31.4 MCHC 31.2 L RDW Std Deviation 50.0 H RDW Coeff of Argenis 13.7 Plt Count 227 MPV 10.6 H Immature Gran % (Auto) 0.1 Neut % (Auto) 75.9 Lymph % (Auto) 9.3 [facility] % (Auto) 9.9 Eos % (Auto) 4.6 Baso % (Auto) 0.2 Neut # (Auto) 7.51 H Lymph # (Auto) 0.92 L [facility] # (Auto) 0.98 H Eos # (Auto) 0.46 Baso # (Auto) 0.02 Immature Gran # (Auto) 0.01 Sodium Potassium Chloride Carbon Dioxide Anion Gap BUN Creatinine Est Cr Clr Drug Dosing Est GFR ( Amer) Est GFR (Non-Af Amer) BUN/Creatinine Ratio Glucose POC Glucose 124 H Calcium Phosphorus 3.3 Magnesium 2.2 04/23/21 04/23/21 04/24/21 16:17 20:39 07:27 WBC RBC Hgb Hct MCV MCH MCHC RDW Std Deviation RDW Coeff of Argenis Plt Count MPV Immature Gran % (Auto) Neut % (Auto) Lymph % (Auto) [facility] % (Auto) Eos % (Auto) Baso % (Auto) Neut # (Auto) Lymph # (Auto) [facility] # (Auto) Eos # (Auto) Baso # (Auto) Immature Gran # (Auto) Sodium Potassium Chloride Carbon Dioxide Anion Gap BUN Creatinine Est Cr Clr Drug Dosing Est GFR ( Amer) Est GFR (Non-Af Amer) BUN/Creatinine Ratio Glucose POC Glucose 180 H 192 H 131 H Calcium Phosphorus Magnesium 04/24/21 09:23 WBC RBC Hgb Hct MCV MCH MCHC RDW Std Deviation RDW Coeff of Argenis Plt Count MPV Immature Gran % (Auto) Neut % (Auto) Lymph % (Auto) [facility] % (Auto) Eos % (Auto) Baso % (Auto) Neut # (Auto) Lymph # (Auto) [facility] # (Auto) Eos # (Auto) Baso # (Auto) Immature Gran # (Auto) Sodium 140 Potassium 3.6 Chloride 102 Carbon Dioxide 31 Anion Gap 8.0 BUN 33 H Creatinine 1.48 H Est Cr Clr Drug Dosing 34.5 Est GFR ( Amer) 47.9 Est GFR (Non-Af Amer) 41.4 BUN/Creatinine Ratio 22.0 H Glucose 220 H POC Glucose Calcium 9.6 Phosphorus Magnesium
--- NOTE | 2021-04-24 10:50 | XRay Report ---
XR chest 1V portable CLINICAL HISTORY: reassess CHF, left pleural effusion. COMPARISON STUDY: 04/21/2021 TECHNIQUE: 1 view of the chest FINDINGS: Single frontal view of the chest demonstrates the heart to again be enlarged status post previous car diothoracic surgery. Compared to previous examination, there is only very mild central vascular conge stion with no peripheral interstitial edema. There are again small bilateral pleural effusions, left greater than right with compressive atelectasis at the lung bases. No confluent alveolar opacities ar e identified. There is no acute osseous pathology. IMPRESSION: Compared to previous examination, there is only mild central vascular congestion remainin g present with no evidence for peripheral interstitial edema. Small bilateral pleural effusions are a gain noted, left greater the right with minimal bibasilar atelectasis. ACT 112: Negative or not required by law. Electronically signed by: Michael Upton M.D. 04/24/2021 10:49 AM
[2021-04-24] MEDS: ACETAMINOPHEN 325 MG TAB PO PRN (11:59)
--- NOTE | 2021-04-24 18:33 | Hospitalist Progress Note ---
Date of Service April 24, 2021 Assessment & Plan (1) Acute HFrEF (heart failure with reduced ejection fraction): Plan: per Dr. Mckeon' notes including below, with addendum: Chest x-ray revealing volume overload, patient with swelling and shortness of breath on admission, all consistent with acute CHF. Started on intravenous Lasix daily with mild troponin elevation thought secondary to CHF. Echocardiogram did reveal a small inferoseptal wall motion abnormality. Diuresing well Repeat chest x-ray improving pulmonary edema Plan to transition to oral Lasix tomorrow Appreciate cardiology service recommendations (2) Acute respiratory failure with hypoxia: Plan: Likely secondary to CHF, improving with continued diuresis. There is no evidence of pneumonia at this point and he is not on antibiotics. He is afebrile. Most recent WBC is within normal limit. Dysphagia Patient has been experiencing aspiration with thin liquids. Appreciate speech therapy input. Change to minced and moist diet with nectar thick liquids. Can have ice chips for comfort. --Tolerating minced and moist diet so far (3) Pleural effusion, left: Plan: -CXR shows a moderate pleural effusion -Likely due to acute CHF (4) Hyperglycemia: Plan: Hgb [id number] at 8.9, inpatient glucose at goal. -Has been on sliding scale insulin coverage -Glycemic pharmacy consult Appreciate ict educator input. Start patient on Januvia and carb diet. -BSG within acceptable range Monitor (5) Abnormal renal function: Plan: Around his baseline of 1.3. (6) Paroxysmal atrial fibrillation: Plan: -Remote history found in a limited record review -Likely not anticoagulated secondary to advanced age and fall risk Diltiazem has been discontinued patient is started on metoprolol. (7) HTN (hypertension): Plan: Elevated, this is likely influenced by patient's agitation level. Continue lisinopril 20 mg twice daily. (8) Delirium: Plan: Known history of dementia with current delirium. High risk for delirium. Zyprexa PRN. Cont to reorient as needed. (9) DVT prophylaxis: Plan: Heparin CPR okay, invasive airway technique not okay. Dispo-PT OT evaluation plan of care discussed with patient's son Curtis in detail and at length all questions answered He is understanding, agreeable, comfortable with the plan of care Admission and Anticipated Discharge Date Admission Date: April 16, 2021 Subjective Follow-up for CHF, hypoxia, etc. Seen with patient's son Curtis at the bedside Sitting up in bed, comfortable, not in distress, on 2 L of oxygen via nasal cannula Per RN patient was able to eat breakfast and lunch with no problems today, no assistance needed Patient reports he feels fine No shortness of breath, palpitations, dizziness, chest pain Per patient's son, patient appears better today, more alert and interactive Mental status still not back to baseline the No other symptoms Review of Systems Review of Systems: all noted and negative except for above Physical Exam Physical Exam: General- oriented x 2, not in distress, speaks in sentences with no effort or accessory muscle use Eyes- anicteric Neck- no JVD Lungs-mild crackles at the bases, but no wheezing Good air entry bilaterally Heart- normal rate, regular rhythm; no murmurs Abdomen- normal bowel sounds, nondistended, soft, nontender Extremities- no pretibial edema, no calf tenderness Neuro- alert, oriented x2; no gross focal neurologic deficits Skin- warm & dry Results & Data Results & Data ([facility]) Vital Signs (Past 12 Hours) Vital Signs Temp Pulse Pulse Resp BP BP Pulse Ox 04/24/21 15:28 76 04/24/21 11:46 94 04/24/21 11:43 36.4 C L 82 18 104/70 99/62 L 95 04/24/21 08:00 36.9 C 82 86 20 133/88 91 all noted and reviewed including below
[2021-04-24] MEDS: FUROSEMIDE 40 MG TAB PO SCH (18:39)
[2021-04-24] MEDS: ASPIRIN 325 MG ECTAB PO SCH (20:02)
[2021-04-24] MEDS: ATORVASTATIN 40 MG TAB PO SCH (20:02)
[2021-04-24] MEDS: DONEPEZIL HCL 10 MG TAB PO SCH (20:03)
[2021-04-25] MEDS: OLANZapine 10 MG/2.1 ML SDV IM PRN (00:24)
[2021-04-25] MEDS: HEPARIN SOD 5,000 UNIT/0.5 ML VIAL SQ SCH ×2 (05:44→20:59)
[2021-04-25] MEDS: SITagliptin PHOSPHATE 25 MG TAB PO SCH (08:31)
[2021-04-25] MEDS: METOPROLOL SUCC 25MG EXT REL TAB PO SCH (08:31)
[2021-04-25] MEDS: INSULIN ASPART 100 UNITS/ML 3 ML PEN SC SCH ×4 (08:32→21:01)
[2021-04-25] MEDS: lisinopril 20 MG TAB PO SCH ×2 (08:32→20:58)
[2021-04-25] MEDS: FUROSEMIDE 40 MG TAB PO SCH (08:32)
[2021-04-25 09:47] LABS: Hematocrit (blood only) 37.8 % (42-52); Hemoglobin 12.6 g/dL (14.0-18.0); Mean Corpuscular Hemoglobin 32.5 pg (25-34); Mean Corpuscular Hgb Conc 33.3 g/dL (32-36); Mean Corpuscular Volume 97.4 fL (80-100); Mean Platelet Volume 10.5 fL (7.4-10.4); Platelet Count 239 K/uL (130-400); RDW Coefficient of Variation 13.8 % (11.5-14.5); RDW Standard Deviation 48.9 fL (36.4-46.3); Red Blood Count 3.88 M/uL (4.7-6.1); White Blood Count 8.88 K/uL (4.8-10.8)
--- NOTE | 2021-04-25 09:57 | Cardiology Progress Note ---
Date of Service April 25, 2021 Assessment & Plan (1) Acute on chronic congestive heart failure: (2) Pleural effusion, bilateral: (3) Atrial fibrillation: (4) S/P AVR (aortic valve replacement): (5) S/P CABG (coronary artery bypass graft): (6) Delirium: Plan: 89-year-old patient admitted with acute respiratory failure secondary to congestive heart failure with bilateral pleural effusions. Volume status appears euvolemic. Residual left pleural effusion noted. IV diuretic therapy transitioned to oral this AM. Mild reduction in LV systolic function. History of CABG and AVR. EF 45-50%. Diltiazem changed to metoprolol succinate this admission. Continue ACEI therapy. Atrial fibrillation. Rates controlled. Continue metoprolol as prescribed. Patient not anticoagulated per review of records. Patient does not appear to be a candidate for long-term anticoagulation due to dementia, and fall risk. Recommend continuation of rate control without anticoagulation. Continue metoprolol as prescribed. Please contact with any further inpatient questions or concerns. Admission and Anticipated Discharge Date Admission Date: April 16, 2021 Supervising Physician Co-Signing Physician Notes Patient seen and examined at the bedside. Poor historian due to underlying dementia. Fluid balance -460 cc. Lying supine with adequate oxygenation. Review of systems cannot be completed due to mental status. Creatinine trending upward to 1.62 mg/DL. Baseline creatinine in the range of 1.2-1.3. PE: VSS. Gen: NAD. Heart: Regular, normal S1-S2. Pulmonary: Diminished lung sounds at the bases bilateral. Extremities: No edema. A/P: Agree with above PA-C history, physical exam, assessment and plan.Serum creatinine trending upward suggesting intravascular volume depletion. Hold Lasix in a.m. 04/26/2021 pending review of labs. Likely require reduction of oral furosemide to once daily dosing. Calcium channel abelino transition to metoprolol. Monitor telemetry. Patient is not a candidate for long-term anticoagulation due to fall risk and dementia. Subjective Patient seen and examined. Chart, medications, and telemetry reviewed. More talkative, pleasantly confused. Telemetry: Atrial fibrillation the 80's. Rates, overall, are acceptably controlled on metoprolol succinate 75 mg/day. AM Metabolic panel pending. Review of Systems Review of Systems: A complete/accurate review of systems was unable to be obtained. Physical Exam Physical Exam: General: No acute distress. HENT: Normocephalic. Atraumatic. Neck: No carotid bruits. No JVD. No HJR. Heart: Irregularly irregular in the 70's. Soft systolic murmur. Lungs: Clear on the right. Absent breath sounds at the left base. No wheeze. Abdomen: +BS. Soft. Nontender. No masses or organomegaly. Extremities: No clubbing, cyanosis, or edema. Pulses: Posterior tibial=1/4. Results & Data ([facility]) Vital Signs (Past 12 Hours) Vital Signs Temp Pulse Pulse Resp BP Pulse Ox 04/25/21 08:00 36.8 C 104 H 66 18 146/63 H 98 04/25/21 03:36 36.6 C 87 20 143/87 H 96 04/24/21 23:06 36.7 C 81 20 132/88 94 Laboratory Results Laboratory Results - last 24 hr 04/24/21 04/24/21 04/24/21 11:40 16:39 21:12 WBC RBC Hgb Hct MCV MCH MCHC RDW Std Deviation RDW Coeff of Argenis Plt Count MPV Sodium Potassium Chloride Carbon Dioxide Anion Gap BUN Creatinine Est Cr Clr Drug Dosing Est GFR ( Amer) Est GFR (Non-Af Amer) BUN/Creatinine Ratio Glucose POC Glucose 161 H 172 H 150 H Calcium 04/25/21 04/25/21 04/25/21 07:35 09:26 09:26 WBC 8.88 RBC 3.88 L Hgb 12.6 L Hct 37.8 L MCV 97.4 MCH 32.5 MCHC 33.3 RDW Std Deviation 48.9 H RDW Coeff of Argenis 13.8 Plt Count 239 MPV 10.5 H Sodium Pending Potassium Pending Chloride Pending Carbon Dioxide Pending Anion Gap Pending BUN Pending Creatinine Pending Est Cr Clr Drug Dosing Pending Est GFR ( Amer) Pending Est GFR (Non-Af Amer) Pending BUN/Creatinine Ratio Pending Glucose Pending POC Glucose 83 Calcium Pending
[2021-04-25 10:09] LABS: BUN Creatinine Ratio 21.7 (10-20); Calcium 9.9 mg/dl (8.5-10.1); Creatinine Clr Calc Pharmacy 28.9 ml/min; Est GFR (Non-African American) 37.1 ml/min; Potassium 3.8 mmol/L (3.5-5.1)
--- NOTE | 2021-04-25 13:30 | Hospitalist Progress Note ---
Date of Service April 25, 2021 Assessment & Plan (1) Acute HFrEF (heart failure with reduced ejection fraction): Plan: per Dr. Mckeon' notes including below, with addendum: Chest x-ray revealing volume overload, patient with swelling and shortness of breath on admission, all consistent with acute CHF. Started on intravenous Lasix daily with mild troponin elevation thought secondary to CHF. Echocardiogram did reveal a small inferoseptal wall motion abnormality. Diuresed well Euvolemic now Repeat chest x-ray improving pulmonary edema Lasix transition to oral form today, 40 mg twice a day Creatinine increased from 1.4-1.6 Hold Lasix in the evening Monitor closely Appreciate cardiology service recommendations (2) Acute respiratory failure with hypoxia: Plan: Likely secondary to CHF, improving with continued diuresis. There is no evidence of pneumonia at this point and he is not on antibiotics. He is afebrile. Most recent WBC is within normal limit. Dysphagia Patient has been experiencing aspiration with thin liquids. Appreciate speech therapy input. Change to minced and moist diet with nectar thick liquids. Can have ice chips for comfort. --Tolerating minced and moist diet so far (3) Pleural effusion, left: Plan: -CXR shows a moderate pleural effusion -Likely due to acute CHF (4) Hyperglycemia: Plan: Hgb [id number] at 8.9, inpatient glucose at goal. -Has been on sliding scale insulin coverage -Glycemic pharmacy consult Appreciate clinical staff educator input. Start patient on Januvia and carb diet. -BSG within acceptable range Monitor (5) Abnormal renal function: Plan: Creatinine increased to 1.4, 1.6 Hold p.m. Lasix Monitor closely (6) Paroxysmal atrial fibrillation: Plan: -Remote history found in a limited record review -Likely not anticoagulated secondary to advanced age and fall risk Diltiazem has been discontinued patient is started on metoprolol. (7) HTN (hypertension): Plan: Elevated, this is likely influenced by patient's agitation level. Continue lisinopril 20 mg twice daily. (8) Delirium: Plan: Known history of dementia with current delirium. High risk for delirium. Zyprexa PRN. Cont to reorient as needed. (9) DVT prophylaxis: Plan: Heparin CPR okay, invasive airway technique not okay. Dispo-PT OT evaluation recommending transitioning to [facility] facility Case management on board Admission and Anticipated Discharge Date Admission Date: April 16, 2021 Subjective Follow-up for CHF exacerbation, etc. Seen resting bed, sitting up, on 2 L of oxygen via nasal cannula Oriented x1, but mostly confused States he feels fine overall Breathing is fine no chest pain, dyspnea, palpitations, dizziness No problems with meals today No other symptoms Review of Systems Review of Systems: all noted and negative except for above Physical Exam Physical Exam: General- oriented x 1, not in distress, speaks in sentences with no effort or accessory muscle use Eyes- anicteric Neck- no JVD Lungs- clear breath sounds bilaterally, no rales/wheezes Heart- normal rate, regular rhythm; no murmurs Abdomen- normal bowel sounds, nondistended, soft, nontender Extremities- no pretibial edema, no calf tenderness Neuro- alert, oriented x 1; no new gross focal neurologic deficits Skin- warm & dry Results & Data Results & Data ([facility]) Vital Signs (Past 12 Hours) Vital Signs Temp Pulse Pulse Resp BP Pulse Ox 04/25/21 11:30 36.7 C 74 18 108/77 98 04/25/21 08:00 36.8 C 104 H 66 18 146/63 H 98 04/25/21 03:36 36.6 C 87 20 143/87 H 96 all noted and reviewed including below
[2021-04-25] MEDS: ASPIRIN 325 MG ECTAB PO SCH (20:57)
[2021-04-25] MEDS: ATORVASTATIN 40 MG TAB PO SCH (20:58)
[2021-04-25] MEDS: DONEPEZIL HCL 10 MG TAB PO SCH (20:58)
[2021-04-26 07:44] LABS: BUN Creatinine Ratio 24.1 (10-20); Calcium 9.6 mg/dl (8.5-10.1); Creatinine Clr Calc Pharmacy 35.2 ml/min; Est GFR (African American) 54.5 ml/min; Est GFR (Non-African American) 47.1 ml/min; Potassium 3.9 mmol/L (3.5-5.1)
[2021-04-26] MEDS: INSULIN ASPART 100 UNITS/ML 3 ML PEN SC SCH ×4 (08:38→20:08)
[2021-04-26] MEDS: HEPARIN SOD 5,000 UNIT/0.5 ML VIAL SQ SCH ×2 (08:40→21:59)
[2021-04-26] MEDS: lisinopril 20 MG TAB PO SCH ×2 (08:40→22:00)
[2021-04-26] MEDS: SITagliptin PHOSPHATE 25 MG TAB PO SCH (08:40)
[2021-04-26] MEDS: METOPROLOL SUCC 25MG EXT REL TAB PO SCH (08:40)
--- NOTE | 2021-04-26 10:56 | Cardiology Progress Note ---
Date of Service April 26, 2021 Assessment & Plan (1) Acute on chronic congestive heart failure: (2) Pleural effusion, bilateral: (3) Atrial fibrillation: (4) S/P AVR (aortic valve replacement): (5) S/P CABG (coronary artery bypass graft): (6) Delirium: Plan: 89-year-old patient admitted with acute respiratory failure secondary to congestive heart failure with bilateral pleural effusions. Residual left pleural effusion noted. Mild reduction in LV systolic function. History of CABG and AVR. EF 45-50%. Diltiazem changed to metoprolol succinate this admission. Continue ACEI therapy. Atrial fibrillation. Rates controlled. Continue metoprolol as prescribed. Patient not anticoagulated per review of records. Patient does not appear to be a candidate for long-term anticoagulation due to dementia, and fall risk. Recommend continuation of rate control without anticoagulation. Continue metoprolol as prescribed. Metabolic panel noted. Recommend reduction in furosemide to 40 mg once a day, to be resumed in the AM of 04/27/2021 Please contact with any further inpatient questions or concerns. Admission and Anticipated Discharge Date Admission Date: April 16, 2021 Supervising Physician Co-Signing Physician Notes Patient seen and examined at the bedside. Poor historian due to underlying dementia. Lasix on hold, creatinine trending downward. Fluid balance negative 900 cc. Lying supine with adequate oxygenation. Review of systems cannot be completed due to mental status. PE: VSS. Gen: NAD. Heart: Regular, normal S1-S2. Pulmonary: Diminished lung sounds at the bases bilateral. Extremities: No edema. A/P: Agree with above PA-C history, physical exam, assessment and plan. Reduce oral furosemide to 40 mg daily to begin in the a.m. 04/27/2021. Calcium channel abelino transition to metoprolol.Patient is not a candidate for long-term anticoagulation due to fall risk and dementia. No further inpatient cardiac testing or intervention. Cardiology will sign off. Please call with questions. Subjective Patient seen and examined. Chart, medications, and telemetry reviewed. Lethargic. Telemetry: Atrial fibrillation in the 70's and 80's. No bradycardia; Ventricular rates well controlled on metoprolol succinate 75 mg/day. Review of Systems Review of Systems: A complete/accurate review of systems was unable to be obtained. Physical Exam Physical Exam: General: No acute distress. HENT: Normocephalic. Atraumatic. Neck: No carotid bruits. No JVD. No HJR. Heart: Irregularly irregular in the 70's. Soft systolic murmur. Lungs: Clear on the right. Absent breath sounds at the left base. No wheeze. Abdomen: +BS. Soft. Nontender. No masses or organomegaly. Extremities: No clubbing, cyanosis, or edema. Pulses: Posterior tibial=1/4. Results & Data ([facility]) Vital Signs (Past 12 Hours) Vital Signs Temp Pulse Resp BP Pulse Ox 04/26/21 07:56 37 C 78 20 131/82 98 04/26/21 04:37 36.9 C 80 24 135/79 95 04/26/21 00:14 36.8 C 97 H 20 128/81 97 Laboratory Results Laboratory Results - last 24 hr 04/25/21 04/25/21 04/25/21 11:13 16:14 16:16 Sodium Potassium Chloride Carbon Dioxide Anion Gap BUN Creatinine Est Cr Clr Drug Dosing Est GFR ( Amer) Est GFR (Non-Af Amer) BUN/Creatinine Ratio Glucose POC Glucose 205 H 69 L* 67 L* Calcium 04/25/21 04/25/21 04/26/21 16:51 20:42 06:49 Sodium 141 Potassium 3.9 Chloride 104 Carbon Dioxide 32 Anion Gap 5.0 BUN 32 H Creatinine 1.33 Est Cr Clr Drug Dosing 35.2 Est GFR ( Amer) 54.5 Est GFR (Non-Af Amer) 47.1 BUN/Creatinine Ratio 24.1 H Glucose 145 H POC Glucose 92 171 H Calcium 9.6 04/26/21 07:42 Sodium Potassium Chloride Carbon Dioxide Anion Gap BUN Creatinine Est Cr Clr Drug Dosing Est GFR ( Amer) Est GFR (Non-Af Amer) BUN/Creatinine Ratio Glucose POC Glucose 138 H Calcium
--- NOTE | 2021-04-26 14:48 | Hospitalist Progress Note ---
Date of Service April 26, 2021 Assessment & Plan (1) Acute HFrEF (heart failure with reduced ejection fraction): Plan: per Dr. Mckeon' notes including below, with addendum: Chest x-ray revealing volume overload, patient with swelling and shortness of breath on admission, all consistent with acute CHF. Started on intravenous Lasix daily with mild troponin elevation thought secondary to CHF. Echocardiogram did reveal a small inferoseptal wall motion abnormality. Diuresed well Euvolemic now Repeat chest x-ray improving pulmonary edema Lasix transitioned to oral form today, 40 mg daily starting tomorrow Creatinine improved, now 1.3 Appreciate cardiology service recommendations (2) Acute respiratory failure with hypoxia: Plan: Likely secondary to CHF, improving with continued diuresis. There is no evidence of pneumonia at this point and he is not on antibiotics. He is afebrile. Most recent WBC is within normal limit. Dysphagia Patient has been experiencing aspiration with thin liquids. Appreciate speech therapy input. Change to minced and moist diet with nectar thick liquids. Can have ice chips for comfort. --Tolerating minced and moist diet so far (3) Pleural effusion, left: Plan: -CXR shows a moderate pleural effusion -Likely due to acute CHF (4) Hyperglycemia: Plan: Hgb [id number] at 8.9, inpatient glucose at goal. -Has been on sliding scale insulin coverage -Glycemic pharmacy consult Appreciate simulation educator input. Start patient on Januvia and carb diet. -BSG within acceptable range Monitor (5) Abnormal renal function: Plan: Creatinine back to baseline Monitor while on Lasix (6) Paroxysmal atrial fibrillation: Plan: -Remote history found in a limited record review -Likely not anticoagulated secondary to advanced age and fall risk Diltiazem has been discontinued patient is started on metoprolol. (7) HTN (hypertension): Plan: Stable now Continue lisinopril 20 mg twice daily. (8) Delirium: Plan: Known history of dementia with current delirium. High risk for delirium. Zyprexa PRN. Cont to reorient as needed. (9) DVT prophylaxis: Plan: Heparin CPR okay, invasive airway technique not okay. Dispo-PT OT evaluation recommending transitioning to [facility] facility Case management on board Admission and Anticipated Discharge Date Admission Date: April 16, 2021 Subjective Follow-up for CHF, etc. Seen resting in bed, sleeping but easily awakened On 2 L of oxygen via nasal cannula, comfortable, not in distress States he feels fine overall No shortness of breath, chest pain, pruritus, dizziness, headache abdominal pain, nausea vomiting No other symptoms Review of Systems Review of Systems: all noted and negative except for above Physical Exam Physical Exam: General- oriented x 1, not in distress, speaks in sentences with no effort or accessory muscle use Eyes- anicteric Neck- no JVD Lungs- clear BS bilaterally, no crackles or wheezing noted Heart- normal rate, regular rhythm; no murmurs Abdomen- normal bowel sounds, nondistended, soft, nontender Extremities- no pretibial edema, no calf tenderness Neuro- alert, oriented x 1; no gross focal neurologic deficits Skin- warm & dry Results & Data Results & Data ([facility]) Vital Signs (Past 12 Hours) Vital Signs Temp Pulse Resp BP Pulse Ox 04/26/21 12:01 36.9 C 68 16 100 04/26/21 07:56 37 C 78 20 131/82 98 04/26/21 04:37 36.9 C 80 24 135/79 95 all noted and reviewed including below
[2021-04-26] MEDS: ATORVASTATIN 40 MG TAB PO SCH (21:59)
[2021-04-26] MEDS: DONEPEZIL HCL 10 MG TAB PO SCH (21:59)
[2021-04-26] MEDS: ASPIRIN 325 MG ECTAB PO SCH (21:59)
[2021-04-27 08:31] LABS: BUN Creatinine Ratio 25.9 (10-20); Calcium 9.7 mg/dl (8.5-10.1); Creatinine Clr Calc Pharmacy 37.5 ml/min; Est GFR (African American) 58.8 ml/min; Est GFR (Non-African American) 50.7 ml/min; Potassium 3.9 mmol/L (3.5-5.1)
[2021-04-27] MEDS ORDERED: FUROSEMIDE 40 MG TAB PO SCH (09:00)
[2021-04-27] MEDS: INSULIN ASPART 100 UNITS/ML 3 ML PEN SC SCH ×4 (09:06→20:37)
[2021-04-27] MEDS: SITagliptin PHOSPHATE 25 MG TAB PO SCH (09:07)
[2021-04-27] MEDS: lisinopril 20 MG TAB PO SCH ×2 (09:07→20:36)
[2021-04-27] MEDS: HEPARIN SOD 5,000 UNIT/0.5 ML VIAL SQ SCH ×2 (09:07→20:37)
[2021-04-27] MEDS: METOPROLOL SUCC 25MG EXT REL TAB PO SCH (09:10)
--- NOTE | 2021-04-27 17:49 | Hospitalist Progress Note ---
Date of Service April 27, 2021 Assessment & Plan (1) Acute HFrEF (heart failure with reduced ejection fraction): Plan: per Dr. Mckeon' notes including below, with addendum: Chest x-ray revealing volume overload, patient with swelling and shortness of breath on admission, all consistent with acute CHF. Started on intravenous Lasix daily with mild troponin elevation thought secondary to CHF. Echocardiogram did reveal a small inferoseptal wall motion abnormality. Diuresed well Euvolemic now Repeat chest x-ray improving pulmonary edema Transitioned from IV to Lasix 40 mg p.o. daily Creatinine improved, now 1.3 Appreciate cardiology service recommendations (2) Acute respiratory failure with hypoxia: Plan: Likely secondary to CHF, improving with continued diuresis. There is no evidence of pneumonia at this point and he is not on antibiotics. He is afebrile. Most recent WBC is within normal limit. Positive productive cough noted by family yesterday Afebrile Repeat chest x-ray today Monitor closely Dysphagia Patient has been experiencing aspiration with thin liquids. Appreciate speech therapy input. Change to minced and moist diet with nectar thick liquids. Can have ice chips for comfort. --Tolerating minced and moist diet so far Delirium Likely multifactorial Hospital delirium, CHF, underlying dementia --Continue to reorient gently (3) Pleural effusion, left: Plan: -CXR shows a moderate pleural effusion -Likely due to acute CHF (4) Hyperglycemia: Plan: Hgb [id number] at 8.9, inpatient glucose at goal. -Has been on sliding scale insulin coverage -Glycemic pharmacy consult Appreciate certified diabetes educator input. Start patient on Januvia and carb diet. -BSG within acceptable range Monitor (5) Abnormal renal function: Plan: Creatinine back to baseline Monitor while on Lasix (6) Paroxysmal atrial fibrillation: Plan: -Remote history found in a limited record review -Likely not anticoagulated secondary to advanced age and fall risk Diltiazem has been discontinued Metoprolol XL 75 mg p.o. daily started (7) HTN (hypertension): Plan: Stable now Continue lisinopril 20 mg twice daily. (8) Delirium: Plan: Known history of dementia with current delirium. High risk for delirium. Zyprexa PRN. Cont to reorient as needed. (9) DVT prophylaxis: Plan: Heparin CPR okay, invasive airway technique not okay. Dispo-PT OT evaluation recommending transitioning to [facility] facility Case management on board plan of care discussed with patient's and daughter at bedside in detail and at length all questions answered they are understanding, agreeable, comfortable with the plan of care Admission and Anticipated Discharge Date Admission Date: April 16, 2021 Subjective Follow-up for CHF exacerbation, etc. Patient resting bed, eyes mostly closed, not in distress States he feels tired, somewhat irritable No shortness of breath , chest pain, palpitations, dizziness Few bites of breakfast per RN No nausea vomiting noted No coughing noted No other symptoms Reevaluate in the evening around 5:30 PM, patient's and daughter at the bedside visiting Concerned about patient's coughing yellow phlegm yesterday Also noticed patient is irritable, more confused today Review of Systems Review of Systems: all noted and negative except for above Physical Exam Physical Exam: General- oriented x 1, not in distress, speaks in sentences with no effort or accessory muscle use Appears somewhat weak Eyes- anicteric Neck- no JVD Lungs-mild rales at the bases, no wheezing Good air entry bilaterally Heart- normal rate, regular rhythm; no murmurs Abdomen- normal bowel sounds, nondistended, soft, nontender Extremities- no pretibial edema, no calf tenderness Neuro- alert, oriented x 1; no gross focal neurologic deficits Skin- warm & dry Results & Data Results & Data ([facility]) Vital Signs (Past 12 Hours) Vital Signs Temp Pulse Pulse Pulse Resp BP BP 04/27/21 15:42 64 04/27/21 15:35 37.0 C 67 18 123/76 04/27/21 13:18 36.4 C L 68 16 117/71 04/27/21 09:10 68 18 146/70 H 04/27/21 07:58 36.6 C 67 18 113/71 04/27/21 07:15 64 Pulse Ox 04/27/21 15:42 04/27/21 15:35 91 04/27/21 13:18 91 04/27/21 09:10 04/27/21 07:58 95 04/27/21 07:15 all noted and reviewed including below
--- NOTE | 2021-04-27 18:46 | XRay Report ---
XR chest 1V portable CLINICAL HISTORY: Follow-up pleural effusions and vascular congestion. Evaluate for pneumonia COMPARISON STUDY: 04/24/2021 TECHNIQUE: 1 view of the chest FINDINGS: Single frontal view of the chest demonstrates the heart to again be enlarged status post previous car diothoracic surgery. There has been interval resolution of mild vascular congestion. There is persist ent small left pleural effusion with left lower lobe atelectasis/collapse. No air bronchograms are se en to suggest underlying pneumonia. There is no evidence for right pleural effusion on the current st udy. There is no evidence for vascular congestion. There is no acute osseous pathology. IMPRESSION: Persistent small left pleural effusion with left lower lobe atelectasis/collapse. No defi nite air bronchograms are seen to suggest underlying pneumonia. ACT 112: Negative or not required by law. Electronically signed by: Michael Upton M.D. 04/27/2021 6:45 PM
[2021-04-27] MEDS: ASPIRIN 325 MG ECTAB PO SCH (20:36)
[2021-04-27] MEDS: DONEPEZIL HCL 10 MG TAB PO SCH (20:36)
[2021-04-27] MEDS: ATORVASTATIN 40 MG TAB PO SCH (20:36)
[2021-04-27] MEDS: ACETAMINOPHEN 325 MG TAB PO PRN (20:41)
[2021-04-28 06:25] LABS: Hematocrit (blood only) 42.7 % (42-52); Hemoglobin 13.1 g/dL (14.0-18.0); Mean Corpuscular Hemoglobin 31.2 pg (25-34); Mean Corpuscular Hgb Conc 30.7 g/dL (32-36); Mean Corpuscular Volume 101.7 fL (80-100); Mean Platelet Volume 11.9 fL (7.4-10.4); Platelet Count 238 K/uL (130-400); RDW Coefficient of Variation 13.7 % (11.5-14.5); RDW Standard Deviation 50.8 fL (36.4-46.3)
[2021-04-28 07:01] LABS: BUN Creatinine Ratio 22.6 (10-20); Calcium 10.1 mg/dl (8.5-10.1); Creatinine Clr Calc Pharmacy 31.9 ml/min; Est GFR (African American) 48.3 ml/min; Est GFR (Non-African American) 41.7 ml/min; Potassium 3.7 mmol/L (3.5-5.1)
[2021-04-28] MEDS: INSULIN ASPART 100 UNITS/ML 3 ML PEN SC SCH ×4 (08:00→21:08)
[2021-04-28] MEDS: HEPARIN SOD 5,000 UNIT/0.5 ML VIAL SQ SCH ×2 (08:35→20:38)
[2021-04-28] MEDS: METOPROLOL SUCC 25MG EXT REL TAB PO SCH (08:35)
[2021-04-28] MEDS: SITagliptin PHOSPHATE 25 MG TAB PO SCH (08:35)
--- NOTE | 2021-04-28 13:47 | Psychiatric Consultation ---
Date of Consultation April 28, 2021 Impression / Recommendations Impression 89 yo man with dementia and multiple medical conditions and acute delirium. Psychiatry was consulted for recommendations regarding behavioral management of agitation. Diagnostically consistent with dementia with acute delirium in setting of acute medical problems. As expected delirium will fluctuate with possibility for periods of more agitated behaviors and this can also be seen with dementia. Given FDA black box warning for increased mortality with use of antipsychotics in dementia, recommending avoiding this unless all other attempts to treat agitation and delirium have failed including verbal de-escalation, re- orientation, maintaining sleep/wake cycle, and optimizing care of medical conditions leading to delirium. (1) Delirium: -attempt verbal de-escalation, delirium prevention strategies, offering snack or warm blanket or comfort items prior to using medication for dementia with behavioral disturbance and delirium with agitation -if absolutely necessary could utilize zyprexa 2.5 mg BID prn for acute agitation and 5 mg po or IM for behavioral emergency (DO NOT EXCEED 10 mg total daily dose in 24 hours). Monitor QTc if antipsychotics are used. Psych History Identifying Data 89 yo man with dementia and multiple medical conditions and acute delirium. Psychiatry was consulted for recommendations regarding behavioral management of agitation. Chief Complaint "I'm good". History of Present Illness Hollis presents as pleasant though disoriented this morning when we visit. He cannot recall having eaten breakfast, believes he is in longterm, thinks the psych liason RN is trying to "sell something", knows it is Nov but believes the year to be 1988. He is polite, friendly and appears to be tolerating the replacement of his IV that he removed earlier this morning. Per chart review he became agitated this morning with nursing and pulled out his IV line and was resistant to having it put back in. Past Psychiatric History Previous Psych History: none known Allergies Allergy/AdvReac Type Severity Reaction Status Date / Time morphine Allergy Unknown Unverified 04/16/21 15:28 Home Medications Medication Instructions Recorded Confirmed Type aspirin 325 mg tablet 325 mg PO HS 04/16/21 04/16/21 History atorvastatin 40 mg tablet (Lipitor) 40 mg PO HS 04/16/21 04/16/21 History diltiazem HCl 180 mg 180 mg PO QAM 04/16/21 04/16/21 History capsule,extended release 24 hr (Cardizem CD) donepezil 10 mg tablet (Aricept) 10 mg PO HS 04/16/21 04/16/21 History furosemide 40 mg tablet (Lasix) See Rx Instructions .ROUTE .COMPLEX 04/16/21 04/16/21 History lisinopril 20 mg tablet (Prinivil) 20 mg PO BID 04/16/21 04/16/21 History Family History none known Substance Abuse History none known Personal History Highest Grade Completed: High School Graduate Beliefs That Will Affect Care: None Patient History Medical History CAD (coronary artery disease) HTN (hypertension) Paroxysmal atrial fibrillation Surgical History History of neck surgery S/P aortic valve replacement with bioprosthetic valve S/P CABG (coronary artery bypass graft) Family History Other Family history unobtainable Social History Smoking Status: Never smoker Hx Alcohol Use: No Hx Substance Use: No Preferred Language: Welsh Communication Ability: Impaired Grill Chef Required: No Beliefs That Will Affect Care: None marital status: Current Living Situation: Spouse and Family How many Children do You have: 3 Other Information That Helps Us Care for You: No Feels Safe at Home: Yes Safety Concerns: Feels Safe At This Time Assistive Devices: Glasses and Oxygen - Continuous Physical Exam Psychiatric: Orientation: alert, oriented to person and cooperative; + not oriented to place and + not oriented to time Apperance: appropriately dressed and appropriately groomed Eye Contact: good eye contact Motor Behavior: no abnormal motor movements Speech: normal rate/rhythm/volume of speech Affect: euthymic affect Mood: no depressed mood and no anxious mood Thought Process: + looseness of associations Thought Content: reality based without delusions Suicidal Thoughts: denies suicidal thoughts Homicidal Thoughts: denies homicidal thoughts Hallucinations: no auditory hallucinations and no visual hallucinations Cognition: language grossly intact; + recent memory not intact and + remote memory not intact Insight: + limited insight Judgement: + limited judgement Vital Signs (Past 24 Hours): Last Vital Signs Temp 36.5 C 04/28/21 12:56 Pulse 50 L 04/28/21 12:56 Resp 18 04/28/21 12:56 BP 99/65 L 04/28/21 12:56 Pulse Ox 96 04/28/21 12:56 Review of Systems Unobtainable due to cognitive status Results & Data ([facility]) Medications Administered Acetaminophen (Acetaminophen 325 Mg Tab) 650 mg PO Q4H PRN PRN Reason: FEVER OR PAIN Stop: 05/24/21 11:50 Last Admin: 04/27/21 20:41 Dose: 650 mg Documented by: [id number] Admin: 04/24/21 11:59 Dose: 650 mg Documented by: [id number] Aspirin (Aspirin 325 Mg Ectab) 325 mg PO HS GUMARO Stop: 05/16/21 20:59 Last Admin: 04/27/21 20:36 Dose: 325 mg Documented by: [id number] Admin: 04/26/21 21:59 Dose: 325 mg Documented by: [id number] Admin: 04/25/21 20:57 Dose: 325 mg Documented by: [id number] Admin: 04/24/21 20:02 Dose: 325 mg Documented by: [id number] Admin: 04/23/21 19:46 Dose: 325 mg Documented by: [id number] Admin: 04/22/21 21:26 Dose: Not Given Documented by: [id number] Admin: 04/21/21 20:11 Dose: 325 mg Documented by: [id number] Admin: 04/20/21 21:32 Dose: 325 mg Documented by: [id number] Admin: 04/19/21 20:54 Dose: Not Given Documented by: [id number] Admin: 04/18/21 20:20 Dose: 325 mg Documented by: [id number] Admin: 04/17/21 21:17 Dose: 325 mg Documented by: [id number] Admin: 04/16/21 22:16 Dose: 325 mg Documented by: [id number] Atorvastatin Calcium (Atorvastatin 40 Mg Tab) 40 mg PO HS GUMARO Stop: 05/16/21 20:59 Last Admin: 04/27/21 20:36 Dose: 40 mg Documented by: [id number] Admin: 04/26/21 21:59 Dose: 40 mg Documented by: [id number] Admin: 04/25/21 20:58 Dose: 40 mg Documented by: [id number] Admin: 04/24/21 20:02 Dose: 40 mg Documented by: [id number] Admin: 04/23/21 19:48 Dose: 40 mg Documented by: [id number] Admin: 04/22/21 21:26 Dose: Not Given Documented by: [id number] Admin: 04/21/21 20:11 Dose: 40 mg Documented by: [id number] Admin: 04/20/21 21:32 Dose: 40 mg Documented by: [id number] Admin: 04/19/21 20:54 Dose: Not Given Documented by: [id number] Admin: 04/18/21 20:20 Dose: 40 mg Documented by: [id number] Admin: 04/17/21 21:17 Dose: 40 mg Documented by: [id number] Admin: 04/16/21 22:16 Dose: 40 mg Documented by: [id number] Donepezil HCl (Donepezil Hcl 10 Mg Tab) 10 mg PO HS GUMARO Stop: 05/16/21 20:59 Last Admin: 04/27/21 20:36 Dose: 10 mg Documented by: [id number] Admin: 04/26/21 21:59 Dose: 10 mg Documented by: [id number] Admin: 04/25/21 20:58 Dose: 10 mg Documented by: [id number] Admin: 04/24/21 20:03 Dose: 10 mg Documented by: [id number] Admin: 04/23/21 19:47 Dose: 10 mg Documented by: [id number] Admin: 04/22/21 21:27 Dose: Not Given Documented by: [id number] Admin: 04/21/21 20:11 Dose: 10 mg Documented by: [id number] Admin: 04/20/21 21:23 Dose: 10 mg Documented by: [id number] Admin: 04/19/21 20:54 Dose: Not Given Documented by: [id number] Admin: 04/18/21 20:20 Dose: 10 mg Documented by: [id number] Admin: 04/17/21 21:17 Dose: 10 mg Documented by: [id number] Admin: 04/16/21 22:16 Dose: 10 mg Documented by: [id number] Furosemide (Furosemide 40 Mg Tab) 40 mg PO QAM GUMARO Stop: 05/27/21 08:59 Last Admin: 04/27/21 09:07 Dose: 40 mg Documented by: [id number] Heparin Sodium (Porcine) (Heparin Sod 5,000 Unit/0.5 Ml Vial) 5,000 units SQ Q12 GUMARO Stop: 05/25/21 20:59 Last Admin: 04/28/21 08:35 Dose: 5,000 units Documented by: [id number] Admin: 04/27/21 20:37 Dose: 5,000 units Documented by: [id number] Admin: 04/27/21 09:07 Dose: 5,000 units Documented by: [id number] Admin: 04/26/21 21:59 Dose: 5,000 units Documented by: [id number] Admin: 04/26/21 08:40 Dose: 5,000 units Documented by: [id number] Admin: 04/25/21 20:59 Dose: 5,000 units Documented by: [id number] Insulin Aspart (Insulin Aspart 100 Units/Ml 3 Ml Pen) 0 units SC ACHS GUMARO Stop: 05/16/21 20:59 Last Admin: 04/28/21 12:09 Dose: 2 units Documented by: [id number] Cosigned by: [id number] Admin: 04/28/21 08:00 Dose: 2 units Documented by: [id number] Cosigned by: [id number] Admin: 04/27/21 20:37 Dose: 1 units Documented by: [id number] Cosigned by: [id number] Admin: 04/27/21 16:53 Dose: 3 units Documented by: [id number] Cosigned by: [id number] Admin: 04/27/21 12:44 Dose: 2 units Documented by: [id number] Cosigned by: [id number] Admin: 04/27/21 09:06 Dose: Not Given Documented by: [id number] Admin: 04/26/21 20:08 Dose: Not Given Documented by: [id number] Admin: 04/26/21 17:28 Dose: 1 units Documented by: [id number] Cosigned by: [id number] Admin: 04/26/21 11:37 Dose: 1 units Documented by: [id number] Cosigned by: [id number] Admin: 04/26/21 08:38 Dose: Not Given Documented by: [id number] Admin: 04/25/21 21:01 Dose: 2 units Documented by: [id number] Cosigned by: [id number] Admin: 04/25/21 16:50 Dose: Not Given Documented by: [id number] Admin: 04/25/21 12:00 Dose: 5 units Documented by: [id number] Cosigned by: [id number] Admin: 04/25/21 08:32 Dose: Not Given Documented by: [id number] Admin: 04/24/21 21:17 Dose: 1 units Documented by: [id number] Cosigned by: [id number] Admin: 04/24/21 17:10 Dose: 4 units Documented by: [id number] Cosigned by: [id number] Admin: 04/24/21 12:36 Dose: 6 units Documented by: [id number] Cosigned by: [id number] Admin: 04/24/21 08:28 Dose: 9 units Documented by: [id number] Cosigned by: [id number] Admin: 04/23/21 20:52 Dose: 3 units Documented by: [id number] Cosigned by: [id number] Admin: 04/23/21 17:33 Dose: 6 units Documented by: [id number] Cosigned by: [id number] Admin: 04/23/21 12:29 Dose: 3 units Documented by: [id number] Cosigned by: [id number] Admin: 04/23/21 08:43 Dose: Not Given Documented by: [id number] Admin: 04/22/21 21:24 Dose: 1 units Documented by: [id number] Cosigned by: [id number] Admin: 04/22/21 17:25 Dose: 1 units Documented by: [id number] Cosigned by: [id number] Admin: 04/22/21 14:22 Dose: Not Given Documented by: [id number] Admin: 04/22/21 08:36 Dose: 1 units Documented by: [id number] Cosigned by: [id number] Admin: 04/21/21 21:18 Dose: 1 units Documented by: [id number] Cosigned by: [id number] Admin: 04/21/21 16:47 Dose: 3 units Documented by: [id number] Cosigned by: [id number] Admin: 04/21/21 11:56 Dose: 3 units Documented by: [id number] Cosigned by: [id number] Admin: 04/21/21 08:10 Dose: 6 units Documented by: [id number] Cosigned by: [id number] Admin: 04/20/21 21:30 Dose: 2 units Documented by: [id number] Cosigned by: [id number] Admin: 04/20/21 17:09 Dose: 2 units Documented by: [id number] Cosigned by: [id number] Admin: 04/20/21 12:08 Dose: 1 units Documented by: [id number] Cosigned by: [id number] Admin: 04/20/21 08:52 Dose: 1 units Documented by: [id number] Cosigned by: [id number] Admin: 04/19/21 20:55 Dose: Not Given Documented by: [id number] Admin: 04/19/21 17:47 Dose: Not Given Documented by: [id number] Cosigned by: [id number] Admin: 04/19/21 12:35 Dose: 10 units Documented by: [id number] Cosigned by: [id number] Admin: 04/19/21 08:22 Dose: 2 units Documented by: [id number] Cosigned by: [id number] Admin: 04/18/21 21:40 Dose: 1 units Documented by: [id number] Cosigned by: [id number] Admin: 04/18/21 17:34 Dose: Not Given Documented by: [id number] Admin: 04/18/21 12:12 Dose: 7 units Documented by: [id number] Cosigned by: [id number] Admin: 04/18/21 08:15 Dose: 13 units Documented by: [id number] Cosigned by: [id number] Admin: 04/17/21 21:17 Dose: 4 units Documented by: [id number] Cosigned by: [id number] Admin: 04/17/21 17:05 Dose: 3 units Documented by: [id number] Cosigned by: [id number] Admin: 04/17/21 12:20 Dose: 3 units Documented by: [id number] Cosigned by: [id number] Admin: 04/17/21 08:15 Dose: 4 units Documented by: [id number] Cosigned by: [id number] Admin: 04/16/21 22:11 Dose: 6 units Documented by: [id number] Cosigned by: [id number] Lisinopril (Lisinopril 20 Mg Tab) 20 mg PO BID GUMARO Stop: 05/21/21 08:59 Last Admin: 04/27/21 20:36 Dose: 20 mg Documented by: [id number] Admin: 04/27/21 09:07 Dose: 20 mg Documented by: [id number] Admin: 04/26/21 22:00 Dose: 20 mg Documented by: [id number] Admin: 04/26/21 08:40 Dose: 20 mg Documented by: [id number] Admin: 04/25/21 20:58 Dose: 20 mg Documented by: [id number] Admin: 04/25/21 08:32 Dose: 20 mg Documented by: [id number] Admin: 04/24/21 20:02 Dose: 20 mg Documented by: [id number] Admin: 04/24/21 08:25 Dose: 20 mg Documented by: [id number] Admin: 04/23/21 19:48 Dose: 20 mg Documented by: [id number] Admin: 04/23/21 11:53 Dose: 20 mg Documented by: [id number] Admin: 04/23/21 08:47 Dose: Not Given Documented by: [id number] Admin: 04/22/21 21:27 Dose: Not Given Documented by: [id number] Admin: 04/22/21 14:20 Dose: Not Given Documented by: [id number] Admin: 04/21/21 21:08 Dose: 20 mg Documented by: [id number] Admin: 04/21/21 08:12 Dose: 20 mg Documented by: [id number] Metoprolol Succinate (Metoprolol Succ 25mg Ext Rel Tab) 75 mg PO QAM GUMARO Stop: 05/22/21 10:29 Last Admin: 04/28/21 08:35 Dose: 75 mg Documented by: [id number] Admin: 04/27/21 09:10 Dose: 75 mg Documented by: [id number] Admin: 04/26/21 08:40 Dose: 75 mg Documented by: [id number] Admin: 04/25/21 08:31 Dose: 75 mg Documented by: [id number] Admin: 04/23/21 19:46 Dose: 75 mg Documented by: [id number] Admin: 04/23/21 11:53 Dose: 75 mg Documented by: [id number] Admin: 04/23/21 08:48 Dose: Not Given Documented by: [id number] Admin: 04/22/21 15:06 Dose: Not Given Documented by: [id number] Miscellaneous (Carbohydrates For Hypoglycemia ) 15 - 30 gm PO UD PRN PRN Reason: Hypoglycemia Protocol Stop: 05/16/21 19:18 Last Admin: 04/25/21 16:16 Dose: 15 gm Documented by: [id number] Olanzapine (Olanzapine 10 Mg/2.1 Ml Sdv) 5 mg IM Q6H PRN PRN Reason: Anxiety/Agitation Stop: 05/20/21 01:56 Last Admin: 04/25/21 00:24 Dose: 5 mg Documented by: [id number] Admin: 04/23/21 22:52 Dose: 5 mg Documented by: [id number] Sitagliptin Phosphate (Sitagliptin Phosphate 25 Mg Tab) 25 mg PO DAILY GUMARO Stop: 05/18/21 16:44 Last Admin: 04/28/21 08:35 Dose: 25 mg Documented by: [id number] Admin: 04/27/21 09:07 Dose: 25 mg Documented by: [id number] Admin: 04/26/21 08:40 Dose: 25 mg Documented by: [id number] Admin: 04/25/21 08:31 Dose: 25 mg Documented by: [id number] Admin: 04/24/21 08:25 Dose: 25 mg Documented by: [id number] Admin: 04/23/21 11:53 Dose: 25 mg Documented by: [id number] Admin: 04/23/21 08:48 Dose: Not Given Documented by: [id number] Admin: 04/22/21 14:20 Dose: Not Given Documented by: [id number] Admin: 04/21/21 08:11 Dose: 25 mg Documented by: [id number] Admin: 04/20/21 10:19 Dose: Not Given Documented by: [id number] Admin: 04/19/21 08:27 Dose: 25 mg Documented by: [id number] Cosigned by: [id number] Admin: 04/18/21 17:35 Dose: 25 mg Documented by: [id number] Coding Level of Care Code 66515 Inpt Consult Level 2 Diagnoses Delirium R41.0
--- NOTE | 2021-04-28 16:54 | Hospitalist Progress Note ---
Date of Service April 28, 2021 Assessment & Plan (1) Acute HFrEF (heart failure with reduced ejection fraction): Plan: per Dr. Mckeon' notes including below, with addendum: Chest x-ray revealing volume overload, patient with swelling and shortness of breath on admission, all consistent with acute CHF. Started on intravenous Lasix daily with mild troponin elevation thought secondary to CHF. Echocardiogram did reveal a small inferoseptal wall motion abnormality. Diuresed well Euvolemic now Repeat chest x-ray improving pulmonary edema Transitioned from IV to Lasix 40 mg p.o. daily Patient appears to be in the dry side, appetite poor since yesterday, creatinine increased to 1.4 Hold Lasix today Appreciate cardiology service recommendations (2) Acute respiratory failure with hypoxia: Plan: Likely secondary to CHF, improving with continued diuresis. There is no evidence of pneumonia at this point and he is not on antibiotics. He is afebrile. Most recent WBC is within normal limit. Positive productive cough noted by family yesterday Afebrile No cough today Repeat chest x-ray: No signs of pneumonia Monitor closely Dysphagia Patient has been experiencing aspiration with thin liquids. Appreciate speech therapy input. Change to minced and moist diet with nectar thick liquids. Can have ice chips for comfort. --Tolerating minced and moist diet so far Delirium Likely multifactorial Hospital delirium, CHF, underlying dementia --Was agitated overnight Pulled out IV lines Calm, cooperative this morning Psych consulted, appreciate the recommendations, as needed Zyprexa for agitation (3) Pleural effusion, left: Plan: -CXR shows a moderate pleural effusion -Likely due to acute CHF (4) Hyperglycemia: Plan: Hgb P1n-doqpheru at 8.9, inpatient glucose at goal. -Has been on sliding scale insulin coverage -Glycemic pharmacy consult Appreciate machine finisher input. Start patient on Januvia and carb diet. -BSG within acceptable range Monitor (5) Abnormal renal function: Plan: Creatinine elevated to 1.4 Hold Lasix Monitor while on Lasix (6) Paroxysmal atrial fibrillation: Plan: -Remote history found in a limited record review -Likely not anticoagulated secondary to advanced age and fall risk Diltiazem has been discontinued Metoprolol XL 75 mg p.o. daily started (7) HTN (hypertension): Plan: Blood pressure on the lower side Hold lisinopril (8) Delirium: Plan: Known history of dementia with current delirium. High risk for delirium. Zyprexa PRN. Cont to reorient as needed. (9) DVT prophylaxis: Plan: Heparin CPR okay, invasive airway technique not okay. Dispo-PT OT evaluation recommending transitioning to [facility] facility Case management on board Admission and Anticipated Discharge Date Admission Date: April 16, 2021 Subjective Follow-up for CHF, etc. Seen resting in bed, sitting up, on 2 L of oxygen via nasal cannula, comfortable, More alert today, calmer, cooperative Mostly confused States he feels all right overall No shortness of breath chest pain, cough, fevers or chills No nausea vomiting Requesting for ice water, pudding No other symptoms Review of Systems Review of Systems: all noted and negative except for above Physical Exam Physical Exam: General- oriented x 1, not in distress, speaks in sentences with no effort or accessory muscle use Eyes- anicteric Neck- no JVD Lungs- clear BS BL no rales/wheezing Heart- normal rate, regular rhythm; no murmurs Abdomen- normal bowel sounds, nondistended, soft, nontender Extremities- no pretibial edema, no calf tenderness Neuro- alert, oriented x 1; no gross focal neurologic deficits Skin- warm & dry Results & Data Results & Data ([facility]) Vital Signs (Past 12 Hours) Vital Signs Temp Pulse Resp BP BP Pulse Ox 04/28/21 16:03 36.8 C 83 18 112/65 94 04/28/21 12:56 36.5 C 50 L 18 99/65 L 96 04/28/21 08:32 36.7 C 104 H 18 134/82 94 all noted and reviewed including below
[2021-04-28] MEDS ORDERED: OLANZapine 10 MG/2.1 ML SDV IM PRN (17:04)
[2021-04-28] MEDS: ASPIRIN 325 MG ECTAB PO SCH (20:38)
[2021-04-28] MEDS: DONEPEZIL HCL 10 MG TAB PO SCH (20:38)
[2021-04-28] MEDS: ATORVASTATIN 40 MG TAB PO SCH (20:38)
[2021-04-28] MEDS: OLANZapine 10 MG/2.1 ML SDV IM PRN (21:17)
[2021-04-29 08:00] LABS: BUN Creatinine Ratio 25.4 (10-20); Calcium 9.5 mg/dl (8.5-10.1); Creatinine Clr Calc Pharmacy 30.6 ml/min; Est GFR (Non-African American) 39.7 ml/min; Potassium 3.7 mmol/L (3.5-5.1)
[2021-04-29] MEDS: INSULIN ASPART 100 UNITS/ML 3 ML PEN SC SCH ×4 (08:29→21:14)
[2021-04-29] MEDS: SITagliptin PHOSPHATE 25 MG TAB PO SCH (08:30)
[2021-04-29] MEDS: METOPROLOL SUCC 25MG EXT REL TAB PO SCH (08:30)
[2021-04-29] MEDS: HEPARIN SOD 5,000 UNIT/0.5 ML VIAL SQ SCH ×2 (08:31→23:09)
[2021-04-29] MEDS ORDERED: SODIUM CHLORIDE 0.9% 500 ML IV SCH (10:45)
--- NOTE | 2021-04-29 10:54 | Hospitalist Progress Note ---
Date of Service April 29, 2021 Assessment & Plan (1) Acute HFrEF (heart failure with reduced ejection fraction): Plan: per Dr. Mckeon' notes including below, with addendum: Chest x-ray revealing volume overload, patient with swelling and shortness of breath on admission, all consistent with acute CHF. Started on intravenous Lasix daily with mild troponin elevation thought secondary to CHF. Echocardiogram did reveal a small inferoseptal wall motion abnormality. Diuresed well Euvolemic now Repeat chest x-ray improving pulmonary edema Transitioned from IV to Lasix 40 mg p.o. daily Patient appears to be still in the dry side, appetite poor over the weekend, creatinine increased to 1.5 Hold Lasix today We will give gentle IV NSS, 50 cc/h x 500 cc total Appreciate cardiology service recommendations (2) Acute respiratory failure with hypoxia: Plan: Likely secondary to CHF, improving with continued diuresis. There is no evidence of pneumonia at this point and he is not on antibiotics. He is afebrile. Most recent WBC is within normal limit. Positive productive cough noted by family last Thursday Afebrile No cough today Repeat chest x-ray: No signs of pneumonia Monitor closely Dysphagia Patient has been experiencing aspiration with thin liquids. Appreciate speech therapy input. Change to minced and moist diet with nectar thick liquids. Can have ice chips for comfort. --Tolerating minced and moist diet so far Advise RN to have patient be supervised with meals as he tends to eat fast Delirium Likely multifactorial Hospital delirium, CHF, underlying dementia --Was agitated overnight Pulled out IV lines Calm, cooperative, somewhat irritable Psych consulted, appreciate the recommendations, as needed Zyprexa for agitation --Reorientation Instructed staff developer to call PT OT to work with patient again today (3) Pleural effusion, left: Plan: -CXR shows a moderate pleural effusion -Likely due to acute CHF (4) Hyperglycemia: Plan: Hgb [id number] at 8.9, inpatient glucose at goal. -Has been on sliding scale insulin coverage -Glycemic pharmacy consult Appreciate cabin man input. Start patient on Januvia and carb diet. -BSG within acceptable range Monitor (5) Abnormal renal function: Plan: Creatinine elevated to 1.5 Hold Lasix Gentle IV NSS 50 cc/h x 500 cc Monitor closely (6) Paroxysmal atrial fibrillation: Plan: -Remote history found in a limited record review -Likely not anticoagulated secondary to advanced age and fall risk Diltiazem has been discontinued Metoprolol XL 75 mg p.o. daily started (7) HTN (hypertension): Plan: Blood pressure on the lower side Hold lisinopril (8) Delirium: Plan: Known history of dementia with current delirium. High risk for delirium. Zyprexa PRN. Cont to reorient. (9) DVT prophylaxis: Plan: Heparin CPR okay, invasive airway technique not okay. Dispo-PT OT evaluation recommending transitioning to [facility] facility Case management on board Management of increased creatinine, in the setting of Lasix use in progress Admission and Anticipated Discharge Date Admission Date: April 16, 2021 Subjective Follow-up for CHF, etc. Seen sitting up in bed, sleeping but easily awakened More conversant today, oriented x1 Irritable but cooperative Denies shortness of breath, chest pain, cough, palpitations, dizziness No abdominal pain, nausea vomiting Difficulty at some point with having used beef last night No problems this morning with eggs, oatmeal, juice Reports he is thirsty, requesting for water No other symptoms Review of Systems Review of Systems: all noted and negative except for above Physical Exam Physical Exam: General- oriented x 1, not in distress, speaks in sentences with no effort or accessory muscle use Eyes- anicteric Neck- no JVD Lungs- clear breath sounds, no crackles or wheezing noted Heart- normal rate, regular rhythm; no murmurs Abdomen- normal bowel sounds, nondistended, soft, nontender Extremities- no pretibial edema, no calf tenderness Neuro- alert, oriented x 1; no new gross focal neurologic deficits Skin- warm & dry Results & Data Results & Data ([facility]) Vital Signs (Past 12 Hours) Vital Signs Temp Pulse Pulse Pulse Resp BP Pulse Ox 04/29/21 08:00 67 04/29/21 07:44 36.4 C L 69 20 130/81 100 04/29/21 03:46 36.4 C L 77 20 139/76 92 04/28/21 23:40 36.4 C L 77 20 142/91 H 97 all noted and reviewed including below
[2021-04-29] MEDS: DONEPEZIL HCL 10 MG TAB PO SCH (23:10)
[2021-04-29] MEDS: ATORVASTATIN 40 MG TAB PO SCH (23:10)
[2021-04-29] MEDS: ASPIRIN 325 MG ECTAB PO SCH (23:10)
[2021-04-29] MEDS: OLANZapine 10 MG/2.1 ML SDV IM PRN (23:14)
[2021-04-30 07:22] LABS: BUN Creatinine Ratio 27.8 (10-20); Calcium 9.7 mg/dl (8.5-10.1); Est GFR (African American) 56.1 ml/min; Est GFR (Non-African American) 48.4 ml/min; Potassium 3.9 mmol/L (3.5-5.1)
[2021-04-30] MEDS: SITagliptin PHOSPHATE 25 MG TAB PO SCH (09:05)
[2021-04-30] MEDS: METOPROLOL SUCC 25MG EXT REL TAB PO SCH (09:05)
[2021-04-30] MEDS: HEPARIN SOD 5,000 UNIT/0.5 ML VIAL SQ SCH (09:06)
[2021-04-30] MEDS: INSULIN ASPART 100 UNITS/ML 3 ML PEN SC SCH ×2 (09:17→12:05)
--- NOTE | 2021-04-30 11:52 | Discharge Summary ---
Date of Service April 30, 2021 Admission HPI Per Admitting Provider 89-year-old male with PMH dementia, CAD s/p CABG, aortic stenosis s/p bioprosthetic aortic valve replacement, paroxysmal atrial fibrillation, HTN. Past medical history very limited due to limited record availability and patient's dementia. Patient son is at the bedside who provides history. Reports that this afternoon, his father was very lethargic. They have a neighbor who is a physician's bindery assistant who came to evaluate him. Patient was found to be hypoxic and have abnormal lung sounds. EMS was called and patient was brought to the ED for further evaluation. Patient son notes increasing lower extremity edema over the past few weeks. Attributes this to the patient not elevating his legs. No other symptoms reported. Note that patient lives at home with his 91-year-old . Son reports that his mother is very resistant to having help come into the house. In the ED, patient is requiring 2 L of oxygen via nasal cannula. CXR is consistent with CHF and a left pleural effusion. Labs show WBC 11.5, Hgb 12.8, creatinine 1.5, glucose 330, proBNP 5400. Patient was given nebulizer treatment and Lasix 40 mg IV. Admission Exam (Per Admitting) Constitutional Constitutional: WD/WN, vitals as above Eyes: PERRL, conjunctivae normal, anicteric sclerae ENMT: external ear and nose normal, oropharynx normal Respiratory: normal respiratory effort; no respiratory distress Auscultation: + crackles (BL bases) Cardiovascular: Rate/Rhythm: regular rate and regular rhythm Vessels: normal peripheral pulses Extremities: + edema (+3 pitting edema BLE) Gastrointestinal (Abdomen): normal bowel sounds, soft, nontender, no hepatosplenomegaly Inspection/Auscultation: + abdomen distended Musculoskeletal: no cyanosis or clubbing, extremities motor strength 5/5 Skin: no rashes, warm and dry Neurologic: PERRL, EOMI, accommodation nl, no face palsy, no dysarthria Psychiatric: Orientation: alert and oriented to person; + not oriented to place and + not oriented to time Cognition: + recent memory not intact Insight: + poor insight Discharge Data Consultations 04/16/21 16:13 ED Decision to Admit Stat 04/21/21 01:09 Consult Cardiology Routine 04/28/21 08:14 Consult Psychiatry Routine Procedures Performed XR chest 1V portable CLINICAL HISTORY: Chest Pain. COMPARISON STUDY: No previous studies for comparison. TECHNIQUE: 1 view of the chest FINDINGS: Single frontal view of the chest demonstrates the heart size to be enlarged status post previous cardiothoracic surgery. There is evidence for a moderate- sized left pleural effusion with left lower lobe atelectasis/collapse. No definite right-sided pleural effusion is seen. There is diffuse interstitial edema most characteristic of congestive heart failure. There is no acute osseous pathology. IMPRESSION: Cardiomegaly status post previous cardiothoracic surgery with evidence for diffuse interstitial edema characteristic of congestive heart failure. Moderate-sized left pleural effusion with left basilar atelectasis is also present. ACT 112: Negative or not required by law. Electronically signed by: Michael Upton M.D. 04/16/2021 2:47 PM XR chest 1V portable CLINICAL HISTORY: Follow-up pleural effusions and vascular congestion. Evaluate for pneumonia COMPARISON STUDY: 04/24/2021 TECHNIQUE: 1 view of the chest FINDINGS: Single frontal view of the chest demonstrates the heart to again be enlarged status post previous cardiothoracic surgery. There has been interval resolution of mild vascular congestion. There is persistent small left pleural effusion with left lower lobe atelectasis/collapse. No air bronchograms are seen to suggest underlying pneumonia. There is no evidence for right pleural effusion on the current study. There is no evidence for vascular congestion. There is no acute osseous pathology. IMPRESSION: Persistent small left pleural effusion with left lower lobe atelectasis/collapse. No definite air bronchograms are seen to suggest underlying pneumonia. ACT 112: Negative or not required by law. Electronically signed by: Michael Upton M.D. 04/27/2021 6:45 PM Hospital Course (1) Acute HFrEF (heart failure with reduced ejection fraction): per Dr. Mckeon' notes including below, with addendum: Chest x-ray revealing volume overload, patient with swelling and shortness of breath on admission, all consistent with acute CHF. Started on intravenous Lasix daily with mild troponin elevation thought secondary to CHF. Echocardiogram did reveal a small inferoseptal wall motion abnormality. Diuresed well, -9 L fluid balance Weight down from 90 kg to 77 kg Repeat chest x-ray improving pulmonary edema Transitioned from IV to Lasix 40 mg p.o. daily At this time patient appears on the dry side, appetite poor over the weekend, creatinine increased to 1.5 Lasix held Creatinine improved to 1.3 Appetite improving Hold Lasix for today Resume Lasix tomorrow if patient is euvolemic, appetite is good Monitor kidney function closely, repeat BMP in 2 to 3 days (2) Acute respiratory failure with hypoxia: Likely secondary to CHF, improving with continued diuresis. There is no evidence of pneumonia at this point and he is not on antibiotics. He is afebrile. Most recent WBC is within normal limit. Positive productive cough noted by family last Thursday Afebrile No cough x2 days Repeat chest x-ray: No signs of pneumonia Monitor closely Dysphagia Patient has been experiencing aspiration with thin liquids. Appreciate speech therapy input. Change to minced and moist diet with nectar thick liquids. Can have ice chips for comfort. --Tolerating minced and moist diet so far Please always supervise with meals as he tends to eat fast Delirium Likely multifactorial Hospital delirium, CHF, underlying dementia --Had periods of agitation while admitted Psych consulted, appreciate the recommendations, as needed Zyprexa for agitation --Reorientation Continue delirium prevention strategies (3) Pleural effusion, left: -CXR shows a moderate pleural effusion -Likely due to acute CHF (4) Hyperglycemia: Hgb [id number] at 8.9, inpatient glucose at goal. -Has been on sliding scale insulin coverage -Glycemic pharmacy consult Appreciate museum educator input. Start patient on Januvia and carb diet. -BSG within acceptable range Monitor (5) Abnormal renal function: Improved with holding Lasix, giving gentle IV fluids Creatinine back to 1.3 Monitor while on Lasix (6) Paroxysmal atrial fibrillation: -Remote history found in a limited record review -Likely not anticoagulated secondary to advanced age and fall risk Diltiazem has been discontinued Metoprolol XL 75 mg p.o. daily started Follow-up with sanitation laborer Dr. Coon in 2 weeks (7) HTN (hypertension): Blood pressure on the lower side Hold lisinopril Monitor blood pressure (8) Delirium: Known history of dementia with current delirium. High risk for delirium. Zyprexa PRN. Cont to reorient. (9) DVT prophylaxis: Heparin given CODE STATUS: CPR okay, invasive airway technique not okay. Dispo-transition to correction facility Follow-up with PCP in 1 week Follow-up with sanitation laborer in 2 weeks
--- NOTE | 2021-04-30 12:16 | Hospitalist Progress Note ---
Date of Service April 30, 2021 Assessment & Plan (1) Acute HFrEF (heart failure with reduced ejection fraction): Plan: per Dr. Mckeon' notes including below, with addendum: Chest x-ray revealing volume overload, patient with swelling and shortness of breath on admission, all consistent with acute CHF. Started on intravenous Lasix daily with mild troponin elevation thought secondary to CHF. Echocardiogram did reveal a small inferoseptal wall motion abnormality. Diuresed well, -9 L fluid balance Weight down from 90 kg to 77 kg Repeat chest x-ray improving pulmonary edema Transitioned from IV to Lasix 40 mg p.o. daily At this time patient appears on the dry side, appetite poor over the weekend, creatinine increased to 1.5 Lasix held Creatinine improved to 1.3 Appetite improving Hold Lasix for today Resume Lasix tomorrow if patient is euvolemic, appetite is good Monitor kidney function closely, repeat BMP in 2 to 3 days (2) Acute respiratory failure with hypoxia: Plan: Likely secondary to CHF, improving with continued diuresis. There is no evidence of pneumonia at this point and he is not on antibiotics. He is afebrile. Most recent WBC is within normal limit. Positive productive cough noted by family last Thursday Afebrile No cough x2 days Repeat chest x-ray: No signs of pneumonia Monitor closely Dysphagia Patient has been experiencing aspiration with thin liquids. Appreciate speech therapy input. Change to minced and moist diet with nectar thick liquids. Can have ice chips for comfort. --Tolerating minced and moist diet so far Please always supervise with meals as he tends to eat fast Delirium Likely multifactorial Hospital delirium, CHF, underlying dementia --Had periods of agitation while admitted Psych consulted, appreciate the recommendations, as needed Zyprexa for agitation --Reorientation Continue delirium prevention strategies (3) Pleural effusion, left: Plan: -CXR shows a moderate pleural effusion -Likely due to acute CHF (4) Hyperglycemia: Plan: Hgb H2a-rniulurg at 8.9, inpatient glucose at goal. -Has been on sliding scale insulin coverage -Glycemic pharmacy consult Appreciate clinical staff educator input. Start patient on Januvia and carb diet. -BSG within acceptable range Monitor (5) Abnormal renal function: Plan: Improved with holding Lasix, giving gentle IV fluids Creatinine back to 1.3 Monitor while on Lasix (6) Paroxysmal atrial fibrillation: Plan: -Remote history found in a limited record review -Likely not anticoagulated secondary to advanced age and fall risk Diltiazem has been discontinued Metoprolol XL 75 mg p.o. daily started Follow-up with retail operations manager Dr. Coon in 2 weeks (7) HTN (hypertension): Plan: Blood pressure on the lower side Hold lisinopril Monitor blood pressure (8) Delirium: Plan: Known history of dementia with current delirium. High risk for delirium. Zyprexa PRN. Cont to reorient. (9) DVT prophylaxis: Plan: Heparin given CODE STATUS: CPR okay, invasive airway technique not okay. Dispo-transition to retirement facility Follow-up with PCP in 1 week Follow-up with retail operations manager in 2 weeks Admission and Anticipated Discharge Date Admission Date: April 16, 2021 Subjective Follow-up for CHF, etc. Seen sitting up in bed, on 2 L of oxygen via nasal cannula, not in distress, comfortable States he feels fine overall No shortness of breath, abrasions, chest pain, dizziness, nausea abdominal pain Eating better today per staff veterinarian No other symptoms Informed that he is going to be transition to retirement facility today and he is agreeable Review of Systems Review of Systems: all noted and negative except for above Physical Exam Physical Exam: General- oriented x 1, not in distress, speaks in sentences with no effort or accessory muscle use Eyes- anicteric Neck- no JVD Lungs- clear breath sounds, to auscultation, no crackles or wheezing noted Heart- normal rate, regular rhythm; no murmurs Abdomen- normal bowel sounds, nondistended, soft, nontender Extremities- no pretibial edema, no calf tenderness Neuro- alert, oriented x 1; no gross focal neurologic deficits Skin- warm & dry Results & Data Results & [facility] ([facility]) Vital Signs (Past 12 Hours) Vital Signs Temp Pulse Pulse Pulse Resp BP BP 04/30/21 11:42 36.3 C L 99 H 19 114/68 04/30/21 11:21 36.7 C 100 H 69 108 H 19 131/61 99/65 L 04/30/21 07:50 36.7 C 108 H 19 131/61 04/30/21 05:06 36.1 C L 68 114/67 Pulse Ox 04/30/21 11:42 100 04/30/21 11:21 92 04/30/21 07:50 92 04/30/21 05:06 100 all noted and reviewed including below
== END 2021-04-30 13:21 | DRG 291 ==
LOC: ED 14:11 → 2S 17:07 → SUATTDRO 17:07 → 2S 18:09